=== PATIENT | male | born 1955 | race African-American/Black ===

== ENCOUNTER 2019-01-18 10:51 | Emergency (ER) | payer BC ==
[2019-01-18 10:59] VITALS: BP 135/67; PULSE 89; TEMP 98.6; BMI 35.7
[2019-01-18] MEDS ORDERED: DEXAMETHASONE LIQUID 0.5 MG/5 ML 240 ML BULK BOTTLE PO ONE (11:28)
[2019-01-18] MEDS ORDERED: DEXAMETHASONE SOD PHOSPHATE 10 MG/1 ML VIAL ONE (11:33)
--- NOTE | 2019-01-18 11:33 | PDOC ---
History of Present Illness - General Chief Complaint: Rash Stated Complaint: ALLERGIC REACTION Time Seen by Provider: 01/18/19 11:18 - History of Present Illness Initial Comments: 01/18/19 11:28 63-year-old male with a past medical history of asthma and hypertension presents for evaluation of rash without systemic symptoms times one day. Past History - Past Medical History Allergies/Adverse Reactions: Allergies Allergy/AdvReac Type Severity Reaction Status Date / Time almond Allergy Verified 11/11/18 10:32 oyster extract Allergy Verified 01/18/19 10:59 HAY FEVER Allergy Uncoded 11/11/18 10:31 Home Medications: Ambulatory Orders Amlodipine Besylate/Benazepril [Lotrel 10-20 mg Capsule] 1 cap PO HS 01/18/19 Budesonide/Formeterol Fumarate [SYMBICORT 160/4.5mcg -] 1 inh PO DAILY 01/18/19 Diphenhydramine [Benadryl -] 50 mg PO ASDIR 01/18/19 Montelukast Sodium [Singulair] 10 mg PO HS 01/18/19 COPD: No - Immunization History Immunization Up to Date: No - Suicide/Smoking/Psychosocial Hx Smoking History: Never smoked Have you smoked in the past 12 months: No Information on smoking cessation initiated: No Hx Alcohol Use: No Drug/Substance Use Hx: No Review of Systems - Review of Systems Constitutional: No: Fever Integumentary: Yes: Pruritus, Rash *Physical Exam - Vital Signs Last Vital Signs Temp Pulse Resp BP Pulse Ox 98.6 F 89 18 135/67 100 01/18/19 10:56 01/18/19 10:56 01/18/19 10:56 01/18/19 10:56 01/18/19 10:56 - Physical Exam Comments: 01/18/19 11:29 HEAD: NC/AT EYES: Conjuntiva clear Ears: Canals and TM's normal NOSE: No d/c THROAT: Moist mucous membrances, oral pharanx clear, uvula midline NECK: Supple without adenopathy CARDIAC: S1 S2 LUNGS: CTA Full and Equal breath sounds ABDOMEN: Soft NT ND MS: Full ROM in all joints without edema NEUROLOGIC: No gross sensory or motor deficits, NVID SKIN: Normal color and temperature no lesions raised wheals about the back neck upper extremities and anterior aspects of the thighs. Medical Decision Making - Medical Decision Making 01/18/19 11:29 This is an ALLERGIC rash, patient states he drank a water with grapefruit flavor which may be the cause of his rash. He's taken Benadryl with minimal relief I will treat him with Decadron have him continue with PO home Benadryl and follow-up with his PCP *DC/Admit/Observation/Transfer Diagnosis at time of Disposition: Rash due to allergy - Discharge Dispostion Disposition: HOME Condition at time of disposition: Stable Decision to Admit order: No - Referrals Referrals: Ernestine Angela MD [Staff Physician] - - Patient Instructions Printed Discharge Instructions: Food Allergy, Hives, DI for Hives Additional Instructions: You're given a dose of a long-acting steroid in the emergency room today. He may return to the emergency room for any reason such as worsening symptoms or symptoms that go unresolved. Follow-up with your primary care physician in 1-2 days without fail. You can continue with home Benadryl as directed. - Post Discharge Activity
== END 2019-01-18 11:40 | disposition home or self-care (01) ==
LOC: JERFT 10:51
DX: L50.0 Allergic urticaria (principal); T78.40XA Allergy, unspecified, initial encounter
CPT/HCPCS: 99282-25

== ENCOUNTER 2019-06-14 17:48 | Inpatient (IN) | payer BC ==
--- NOTE | 2019-06-14 17:59 | PDOC ---
History of Present Illness - General Stated Complaint: CHEST PAIN Past History - Past Medical History Allergies/Adverse Reactions: Allergies Allergy/AdvReac Type Severity Reaction Status Date / Time almond Allergy Verified 11/11/18 10:32 oyster extract Allergy Verified 01/18/19 10:59 HAY FEVER Allergy Uncoded 11/11/18 10:31 Home Medications: Ambulatory Orders Amlodipine Besylate/Benazepril [Lotrel 10-20 mg Capsule] 1 cap PO HS 01/18/19 Budesonide/Formeterol Fumarate [SYMBICORT 160/4.5mcg -] 1 inh PO DAILY 01/18/19 Diphenhydramine [Benadryl -] 50 mg PO ASDIR 01/18/19 Montelukast Sodium [Singulair] 10 mg PO HS 01/18/19 COPD: No - Immunization History Immunization Up to Date: No - Psycho Social/Smoking Cessation Hx Smoking History: Never smoked Have you smoked in the past 12 months: No Hx Alcohol Use: No Drug/Substance Use Hx: No
--- NOTE | 2019-06-14 18:11 | PDOC ---
Rapid Medical Evaluation Chief Complaint: Pain Time Seen by Provider: 06/14/19 18:07 Medical Evaluation: Allergies Allergy/AdvReac Type Severity Reaction Status Date / Time almond Allergy Verified 11/11/18 10:32 oyster extract Allergy Verified 01/18/19 10:59 HAY FEVER Allergy Uncoded 11/11/18 10:31 06/14/19 18:07 I have performed a brief in-person evaluation of this patient. The patient presents with a chief complaint of:chest pain with cough, thinks is independant. No relief with nexium Pertinent physical exam findings: + left arm numbness ~ 1 hour ago, resolved. Chest pain / pressure " I feel like someone is standing on chest" I have ordered the following: EkG done in triage. The patient will proceed to the ED for further evaluation. Discharge Disposition - Diagnosis Chest pain - Referrals - Patient Instructions - Post Discharge Activity
[2019-06-14 18:33] LABS: BASO % 0.5 % (0-2.0); EOS % 3.4 % (0-4.5); HEMATOCRIT 40.8 % (35.4-49); HEMOGLOBIN 13.3 GM/dL (11.7-16.9); MCH 28.3 pg (25.7-33.7); MCHC 32.6 g/dl (32.0-35.9); MEAN CELL VOLUME 86.8 fl (80-96); MONO % 12.6 % (3.8-10.2); NEUT % 76.5 % (42.8-82.8); PLATELET COUNT 235 K/MM3 (134-434); RBC 4.71 M/mm3 (4.00-5.60); RDW 14.5 % (11.9-15.9)
[2019-06-14 18:40] LABS: EPI CELLS 0.3 /HPF (0-5/HPF); HYALINE CASTS 2 /lpf (0-8); URINE APPEARANCE CLEAR; URINE BACTERIA 0.5 /hpf (NEGATIVE); URINE BILIRUBIN NEGATIVE (NEGATIVE); URINE COLOR YELLOW; URINE GLUCOSE (UA) NEGATIVE (NEGATIVE); URINE KETONE TRACE (NEGATIVE); URINE LEUK ESTERASE NEGATIVE (NEGATIVE); URINE NITRITE NEGATIVE (NEGATIVE); URINE PROTEIN NEGATIVE (NEGATIVE); URINE RBC 1 /hpf (0-4); URINE UROBILINOGEN 0.2 mg/dL (0.2-1.0); URINE WBC 1 /hpf (0-5)
[2019-06-14 18:46] LABS: INR 1.21 (0.83-1.09); PROTHROMBIN TIME (PATIENT) 14.3 SEC (9.7-13.0)
[2019-06-14 19:04] LABS: ALBUMIN 3.7 g/dl (3.4-5.0); ALK PHOS 75 U/L (45-117); ANION GAP 6 MMOL/L (8-16); BILIRUBIN,TOTAL 0.5 mg/dL (0.2-1); BLOOD UREA NITROGEN 15.5 mg/dL (7-18); CALCIUM 9.1 mg/dL (8.5-10.1); CHLORIDE 104 mmol/L (98-107); CO2 28 mmol/L (21-32); GLUCOSE,RANDOM 87 mg/dL (74-106); SGOT/AST 19 U/L (15-37); SGPT/ALT 16 U/L (13-61); SODIUM 138 mmol/L (136-145); TOT PROT 7.1 g/dl (6.4-8.2)
[2019-06-14] MEDS ORDERED: SODIUM CHLORIDE IV ONE (20:03)
[2019-06-14 21:26] LABS: VENOUS PC02 38.6 mmHg (38-52); VENOUS PH 7.43 (7.31-7.41); VENOUS PO2 50.6 mmHg (28-48)
[2019-06-14] MEDS ORDERED: ACETAMINOPHEN 500 MG TABLET (FP) PO ONE (21:50)
--- NOTE | 2019-06-14 22:16 | PDOC ---
Documentation entered by Brandie Bhat SCRIBE, acting as scribe for Violet Jimenez MD. Violet Jimenez MD: This documentation has been prepared by the scribe, Brandie Bhat SCRIBE, under my direction and personally reviewed by me in its entirety. I confirm that the documentation accurately reflects all work, treatment, procedures, and medical decision making performed by me. Attending Attestation - Resident Resident Name: [email or web address] - ED Attending Attestation I have performed the following: I have examined & evaluated the patient, The case was reviewed & discussed with the resident, I agree w/resident's findings & plan, Exceptions are as noted - HPI HPI: 06/14/19 20:57 The patient is a 64 year old male with significant past medical history of HTN, COPD, asthma, and prostate cancer who presents to the ED with 2 days of chest pain and 1 week of nonproductive cough with increased burping. Pt describes the chest pain as L sided, substernal, constant, non radiating, feels like a baby is sitting on his chest, associated left upper extremity numbness and dyspnea on exertion, worsening with movements and certain positions. Pt reports taking nexium with no relief of symptoms. Pt notes he had a stress test and echo (JanuaryFebruary 2019) which he reports was normal. As per patient, he states traveling on a 4-5+ hour trip at the beginning of this month (05/2019). The patient denies, headache and dizziness.Denies fever, chills, nausea, vomiting, diarrhea and constipation. Denies dysuria, frequency, urgency and hematuria. Allergies: [place], oyster extract, hay fever. Social History: denies tobacco or illicit drug use. PCP: Dr. Damir Abraham - Physicial Exam PE: 06/14/19 20:57 GENERAL: +Cough. Awake, alert, and fully oriented, in no acute distress HEAD: No signs of trauma ENT: Auricles normal inspection, hearing grossly normal, nares patent, oropharynx clear without exudates. Moist mucosa NECK: Normal ROM, supple, no lymphadenopathy, JVD, or masses LUNGS: +Right base fine crackles. No wheezes. HEART: Regular rate and rhythm, normal S1 and S2, no murmurs, rubs or gallops ABDOMEN: Soft, nontender, normoactive bowel sounds. No guarding, no rebound. No masses EXTREMITIES: Normal range of motion, no edema. No clubbing or cyanosis. No cords, erythema, or tenderness NEUROLOGICAL: Cranial nerves II through XII grossly intact. Normal speech SKIN: Warm, Dry, normal turgor, no rashes or lesions noted. - Medical Decision Making 06/14/19 23:04 64-year-old male presents with several days of increasing shortness of breath mild cough -has a past medical history of hypertension ,COPD ,prostate cancer status post radiation treatment Reviewing his vital signs is a low-grade fever of 100.7 He is not hypoxic and saturating at 97% on room air He did take a bus trip down to [place] and back on election day Troponin 0 0.02 CBC is unremarkable EKG is normal sinus rhythm at 93 bpm incomplete right bundle branch block Chemistries are essentially normal 06/14/19 23:09 CTA of the chest showed acute bilateral upper and lower lobe central pulmonary embolism There is also a small right posterior bibasilar opacity seen which may represent infiltrate versus a focal edema associated with the pulmonary infarction Trace right pleural effusion Heparin was started with a bolus of 80 units per KG and therefore he was given almost 8000 units of heparin followed by an infusion of 18 units/kg/h plan dmit to teelemetry
[2019-06-14] MEDS ORDERED: ACETAMINOPHEN 325 MG TABLET (FP) ONE (22:20)
--- NOTE | 2019-06-14 22:20 | PDOC ---
History of Present Illness - General Chief Complaint: Chest Pain Stated Complaint: CHEST PAIN Time Seen by Provider: 06/14/19 18:07 Past History - Past Medical History Allergies/Adverse Reactions: Allergies Allergy/AdvReac Type Severity Reaction Status Date / Time almond Allergy Verified 06/14/19 18:10 [place] nut Allergy Verified 06/15/19 05:54 oyster extract Allergy Verified 06/14/19 18:10 shellfish derived Allergy Verified 06/15/19 05:54 HAY FEVER Allergy Uncoded 06/14/19 18:10 Home Medications: Ambulatory Orders Amlodipine Besylate/Benazepril [Lotrel 10-20 mg Capsule] 1 cap PO HS 01/18/19 Budesonide/Formeterol Fumarate [SYMBICORT 160/4.5mcg -] 1 inh PO DAILY 01/18/19 Diphenhydramine [Benadryl -] 50 mg PO ASDIR 01/18/19 Montelukast Sodium [Singulair] 10 mg PO HS 01/18/19 COPD: No - Immunization History Immunization Up to Date: No - Psycho Social/Smoking Cessation Hx Smoking History: Never smoked Have you smoked in the past 12 months: No Hx Alcohol Use: No Drug/Substance Use Hx: No *Physical Exam - Vital Signs Last Vital Signs Temp Pulse Resp BP Pulse Ox 100.7 F H 97 H 16 149/86 97 06/14/19 18:06 06/14/19 18:06 06/14/19 18:06 06/14/19 18:06 06/14/19 18:06 ED Treatment Course - LABORATORY CBC & Chemistry Diagram: 06/17/19 06:55 06/17/19 06:55 - ADDITIONAL ORDERS Additional order review: Laboratory Results 06/14/19 06/14/19 06/14/19 21:00 18:20 18:20 PT with INR 14.30 H INR 1.21 H VBG pH 7.43 H POC VBG pCO2 38.6 POC VBG pO2 50.6 H VBG HCO3 24.9 VBG O2 Sat ([place]) 84.8 H VBG Base Excess 1.1 Sodium Potassium Chloride Carbon Dioxide Anion Gap BUN Creatinine Est GFR (CKD-EPI)AfAm Est GFR (CKD-EPI)NonAf Random Glucose Calcium Total Bilirubin AST ALT Alkaline Phosphatase Creatine Kinase Creatine Kinase Index CK-MB (CK-2) Troponin I Total Protein Albumin Urine Color Yellow Urine Appearance Clear Urine pH 5.0 Ur Specific [place] 1.020 Urine Protein Negative Urine Glucose (UA) Negative Urine Ketones Trace H Urine Blood Trace Urine Nitrite Negative Urine Bilirubin Negative Urine Urobilinogen 0.2 Ur Leukocyte Esterase Negative Urine WBC (Auto) 1 Urine RBC (Auto) 1 Urine Casts (Auto) 2 U Epithel Cells (Auto) 0.3 Urine Bacteria (Auto) 0.5 06/14/19 18:20 PT with INR INR VBG pH POC VBG pCO2 POC VBG pO2 VBG HCO3 VBG O2 Sat ([place]) VBG Base Excess Sodium 138 Potassium 4.0 Chloride 104 Carbon Dioxide 28 Anion Gap 6 L BUN 15.5 Creatinine 1.0 Est GFR (CKD-EPI)AfAm 91.78 Est GFR (CKD-EPI)NonAf 79.19 Random Glucose 87 Calcium 9.1 Total Bilirubin 0.5 AST 19 ALT 16 Alkaline Phosphatase 75 Creatine Kinase 200 Creatine Kinase Index No Result Required. CK-MB (CK-2) < 1.0 Troponin I < 0.02 Total Protein 7.1 Albumin 3.7 Urine Color Urine Appearance Urine pH Ur Specific [place] Urine Protein Urine Glucose (UA) Urine Ketones Urine Blood Urine Nitrite Urine Bilirubin Urine Urobilinogen Ur Leukocyte Esterase Urine WBC (Auto) Urine RBC (Auto) Urine Casts (Auto) U Epithel Cells (Auto) Urine Bacteria (Auto) 06/14/19 18:20 RBC 4.71 MCV 86.8 MCHC 32.6 RDW 14.5 MPV 8.0 Neutrophils % 76.5 Lymphocytes % 7.0 L Monocytes % 12.6 H Eosinophils % 3.4 Basophils % 0.5 - RADIOLOGY Radiology Studies Ordered: Category Date Time Status CHEST CTA [CT] Stat CT Scan 06/14/19 20:04 Ordered Medical Decision Making - Medical Decision Making 06/14/19 21:51 HPI: 64yo M hx HTN, asthma/COPD, prostate CA (s/p surgery in December and radiation in March), season allergies, and 5hr bus trip 3 weeks ago presents from home c/ o 1wk of cough and increased gas and LO, 2 days of constant substernal chest pressure, and a 5-10 minute episode of LUE numbness at rest today. Past week noticed nonproductive cough, significant increase in gas/burping despite nexium use, and new onset LO up hill or stairs, worsening, no hx LO, no associated sx , no improvement with inhaler. Then pt noticed 2 days of constant gradual onset substernal chest pressure intermittently radiating to back, no hx similar sx, no provoking/palliating factors. Today had 5-10min episode of LUE numbness/ tingling while sitting at desk, at rest, no hx similar sx. Denies smoking, hormone use, FHx early CVD, hx DVT/PE, hemoptysis, leg swelling, calf tenderness , sick contacts, international travel, F/C, N/V, lightheadedness, headache, diaphoresis, abdominal pain, D/C, blood in stool, urinary sx, vision changes, focal weakness. PCP/cardio - [place] ROS: Constitutional: Negative for chills, fever, fatigue, diaphoresis. HENT: Negative for sore throat, rhinorrhea, congestion. Eyes: Negative for visual disturbance. Respiratory: Positive for shortness of breath and cough. Negative for wheezing. Cardiovascular: Positive for chest pain. Negative for palpitations, and leg swelling. Gastrointestinal: Positive for increasing burping/gas. Negative for abdominal pain, blood in stool, constipation, diarrhea, nausea, and vomiting. Genitourinary: Negative for dysuria, flank pain, and hematuria. Musculoskeletal: Negative for myalgias, back pain, and neck pain. Skin: Negative for rash. Neurological: Positive for LUE numbness/tingling. Negative for light-headedness , dizziness, vertigo, syncope, weakness, and headaches. Psychiatric/Behavioral: Negative for behavioral problems and confusion. PE: Gen: Alert, NAD, comfortable-appearing. HEENT: PERRL, EOMI, MMM, NCAT. No conjunctival pallor. Sclera are non-icteric. Oropharynx is clear. CV: Regular rate and rhythm. No murmurs, rubs, or gallops. No chest tenderness. PULM: No resp distress. CTAB, no wheezes, rales, or rhonchi. ABD: soft, NT/ND, no rebound tenderness or guarding, no CVA tenderness. BACK: No TTP of c/t/l-spine. No step-offs or deformities. MSK: No bony deformities. 2+ pulses in all extremities. NEURO: AAOx3. PERRL. No gross CN deficits. Strength and sensation grossly intact throughout. EXTREMITIES: No cyanosis. No clubbing. No edema. No calf tenderness. PSYCH: Normal mood and thought pattern. SKIN: Warm and dry. Normal capillary refill. No rashes. No jaundice. MDM: 64yo M hx HTN, asthma/COPD, prostate CA (s/p surgery in December and radiation in March), season allergies, and 5hr bus trip 3 weeks ago presents from home with 1wk of cough and increased gas and LO, 2 days of constant substernal chest pressure, and a 5-10 minute episode of LUE numbness at rest today. Tachycardic to 97, 100.7F, O2 sat 97% on RA, other VSS, lungs CTAB, no leg swelling/calf tenderness. Ddx: PE ([facility] 4, high suspicion), ACS/PA (HEART 4), COPD exacerbation, sepsis, PNA, UTI, metabolic derangement, anemia -EKG -CBC,CMP,Coags,Cardiac profile w/tropx2, VBG,Lact,BCx,UA/UC -CTPE -Tylenol -IVF -Dispo: likely admit pending w/u 06/14/19 23:03 EKG reviewed: NSR, IRBBB, 93bpm, normal axis, no e/o acute ischemia, no significant change compared to 04/14/18 Labs reviewed. Trop neg. CTPE showed bilateral PE. No hx head bleed, GI bleed, head tumor. Discussed with pt. Will start heparin per PE protocol. CTPE: acute bilateral upper and lower lobe central pulmonary embolism, there is also a small right posterior bibasilar opacity seen which may represent infiltrate versus a focal edema associated with the pulmonary infarction, Trace right pleural effusion 06/14/19 23:51 Signed out to admitting team. Added duplex BLEs. Discharge - Discharge Information Problems reviewed: Yes Clinical Impression/Diagnosis: Chest pain, Pulmonary embolism, bilateral Condition: Stable - Admission Yes - Follow up/Referral - Patient Discharge Instructions - Post Discharge Activity
[2019-06-14] MEDS ORDERED: HEPARIN NA (PORCINE) 5,000 UNITS/ML 1ML VIAL IVPUSH ONE (22:54)
[2019-06-14 22:57] LABS: ACTIVATED PTT 36.1 SECONDS (25.2-36.5)
[2019-06-14] MEDS ORDERED: HEPARIN NA (PORCINE) 5,000 UNITS/ML 1ML VIAL ONE (23:07)
[2019-06-14] MEDS ORDERED: HEPARIN INFUSION - 25,000 UNITS/500 ML INFUS.BAG IVPB ONE (23:07)
[2019-06-14] MEDS: HEPARIN - 25,000 UNIT in SODIUM CHLORIDE 495 ML IV SCH (23:22)
--- NOTE | 2019-06-14 23:47 | HP ---
Admitting History and Physical - Primary Care Physician PCP: Damir Abraham - Admission Chief Complaint: SOB, Chest Pressure History of Present Illness: This is a 64 y/o man with a PMHx of HTN, COPD, Asthma, and Prostate Ca (s/p sx, completed RT, 03/2019). Who presents to the ED with chest pain x2 days, and nonproductive cough x 1 week, with increased belching. Patient describes the chest pain as L- sided, substernal, constant and non radiating, states feels like a baby is sitting on my chest, Patient reports having left upper extremity numbness, dyspnea on exertion, worsening with movements and certain positions. Patient reports taking Nexium with no relief of symptoms. Patient reports having a Stress Test and an Echo (February 2019), which he reports was normal. Patient reports recent travel a 4-5+hour Bus trip to [place], [place] at the beginning of this month. Patient denies fever, chills, dizziness, headache, palpitations, N/V/D, constipation, melena, hematochezia, dysuria, frequency, urgency,hematuria. ED course was noted for: (1) CTA- bilateral upper/lower PE. small right posterior bibasilar opacity. ? infiltrate vs focal edema with pulmonary infarction. 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) History of Recent Travel: Yes (Bus Trip +4/5 hrs- [facility]) Home Medications - Allergies Allergies/Adverse Reactions: Allergies Allergy/AdvReac Type Severity Reaction Status Date / Time almond Allergy Verified 06/14/19 18:10 [place] nut Allergy Verified 06/15/19 05:54 oyster extract Allergy Verified 06/14/19 18:10 shellfish derived Allergy Verified 06/15/19 05:54 [place]AY FEVER Allergy Uncoded 06/14/19 18:10 - Home Medications Home Medications: Ambulatory Orders Amlodipine Besylate/Benazepril [Lotrel 10-20 mg Capsule] 1 cap PO HS 01/18/19 Budesonide/Formeterol Fumarate [SYMBICORT 160/4.5mcg -] 1 inh PO DAILY 01/18/19 Diphenhydramine [Benadryl -] 50 mg PO ASDIR 01/18/19 Montelukast Sodium [Singulair] 10 mg PO HS 01/18/19 Family Medical History Family Hx Coronary Artery Disease: Brother (Valve replacement) Family Hx Nuerologic Problems: Father (CVA) Other Family History: Mother- Varicose Veins Review of Systems - Review of Systems Constitutional: reports: Malaise Eyes: reports: No Symptoms HENT: reports: No Symptoms Neck: reports: No Symptoms Cardiovascular: reports: Chest Pain, Shortness of Breath Respiratory: reports: Cough, Orthopnea, SOB, SOB on Exertion Gastrointestinal: reports: Indigestion Genitourinary: reports: No Symptoms Breasts: reports: No Symptoms Reported Musculoskeletal: reports: No Symptoms Integumentary: reports: No Symptoms Neurological: reports: Weakness Endocrine: reports: No Symptoms Hematology/Lymphatic: reports: No Symptoms Psychiatric: reports: No Symptoms Pain Intensity: 4 Physical Examination Vital Signs: Vital Signs Temperature 100.7 F H 06/14/19 18:06 Pulse Rate 88 06/14/19 22:45 Respiratory Rate 20 06/14/19 22:45 Blood Pressure 147/80 06/14/19 22:45 O2 Sat by Pulse Oximetry (%) 95 06/14/19 22:45 Constitutional: Yes: Mild Distress, Obese Eyes: Yes: WNL, Conjunctiva Clear, EOM Intact, PERRL HENT: Yes: WNL, Atraumatic, Normocephalic Neck: Yes: WNL, Supple, Trachea Midline Cardiovascular: Yes: Regular Rate and Rhythm, S1, S2 Respiratory: Yes: Cough, Diminished, SOB on Exertion Gastrointestinal: Yes: WNL, Normal Bowel Sounds, Soft, Abdomen, Obese Renal/: Yes: WNL Breast(s): Yes: WNL Musculoskeletal: Yes: WNL Extremities: Yes: WNL Edema: No Peripheral Pulses WNL: Yes Neurological: Yes: WNL, Alert, Oriented, Cran Nerves II-XII Intact ...Motor Strength: WNL Psychiatric: Yes: WNL, Alert, Oriented Labs: CBC, BMP 06/14/19 18:20 06/14/19 18:20 Laboratory Results - last 24 hr 06/14/19 06/14/19 06/14/19 18:20 18:20 18:20 WBC 8.0 RBC 4.71 Hgb 13.3 Hct 40.8 MCV 86.8 MCH 28.3 MCHC 32.6 RDW 14.5 Plt Count 235 MPV 8.0 Absolute Neuts (auto) 6.2 Neutrophils % 76.5 Lymphocytes % 7.0 L Monocytes % 12.6 H Eosinophils % 3.4 Basophils % 0.5 Nucleated RBC % 0 PT with INR 14.30 H INR 1.21 H PTT (Actin FS) 36.1 Anticoagulation Therapy Puncture Site ABG pH ABG pCO2 at Pt Temp ABG pO2 at Pt Temp ABG HCO3 ABG O2 Sat (Measured) ABG O2 Content ABG Base Excess Ramon Test VBG pH POC VBG pCO2 POC VBG pO2 VBG HCO3 VBG O2 Sat (Usman) VBG Base Excess O2 Delivery Device Oxygen Flow Rate Vent Mode Vent Rate Mechanical Rate Pressure Support Vent Sodium 138 Potassium 4.0 Chloride 104 Carbon Dioxide 28 Anion Gap 6 L BUN 15.5 Creatinine 1.0 Est GFR (CKD-EPI)AfAm 91.78 Est GFR (CKD-EPI)NonAf 79.19 Random Glucose 87 Lactic Acid Calcium 9.1 Total Bilirubin 0.5 AST 19 ALT 16 Alkaline Phosphatase 75 Creatine Kinase 200 Creatine Kinase Index No Result Required. CK-MB (CK-2) < 1.0 Troponin I < 0.02 Total Protein 7.1 Albumin 3.7 Urine Color Urine Appearance Urine pH Ur Specific [place] Urine Protein Urine Glucose (UA) Urine Ketones Urine Blood Urine Nitrite Urine Bilirubin Urine Urobilinogen Ur Leukocyte Esterase Urine WBC (Auto) Urine RBC (Auto) Urine Casts (Auto) U Epithel Cells (Auto) Urine Bacteria (Auto) 06/14/19 06/14/19 06/14/19 18:20 21:00 21:00 WBC RBC Hgb Hct MCV MCH MCHC RDW Plt Count MPV Absolute Neuts (auto) Neutrophils % Lymphocytes % Monocytes % Eosinophils % Basophils % Nucleated RBC % PT with INR INR PTT (Actin FS) Anticoagulation Therapy Puncture Site ABG pH ABG pCO2 at Pt Temp ABG pO2 at Pt Temp ABG HCO3 ABG O2 Sat (Measured) ABG O2 Content ABG Base Excess Ramon Test VBG pH 7.43 H POC VBG pCO2 38.6 POC VBG pO2 50.6 H VBG HCO3 24.9 VBG O2 Sat (Usman) 84.8 H VBG Base Excess 1.1 O2 Delivery Device Oxygen Flow Rate Vent Mode Vent Rate Mechanical Rate Pressure Support Vent Sodium Potassium Chloride Carbon Dioxide Anion Gap BUN Creatinine Est GFR (CKD-EPI)AfAm Est GFR (CKD-EPI)NonAf Random Glucose Lactic Acid 1.0 Calcium Total Bilirubin AST ALT Alkaline Phosphatase Creatine Kinase Creatine Kinase Index CK-MB (CK-2) Troponin I Total Protein Albumin Urine Color Yellow Urine Appearance Clear Urine pH 5.0 Ur Specific [place] 1.020 Urine Protein Negative Urine Glucose (UA) Negative Urine Ketones Trace H Urine Blood Trace Urine Nitrite Negative Urine Bilirubin Negative Urine Urobilinogen 0.2 Ur Leukocyte Esterase Negative Urine WBC (Auto) 1 Urine RBC (Auto) 1 Urine Casts (Auto) 2 U Epithel Cells (Auto) 0.3 Urine Bacteria (Auto) 0.5 06/14/19 06/14/19 22:42 23:45 WBC RBC Hgb Hct MCV MCH MCHC RDW Plt Count MPV Absolute Neuts (auto) Neutrophils % Lymphocytes % Monocytes % Eosinophils % Basophils % Nucleated RBC % PT with INR INR PTT (Actin FS) Anticoagulation Therapy No Result Required. Puncture Site Right radial ABG pH 7.40 ABG pCO2 at Pt Temp 35.3 ABG pO2 at Pt Temp 78.5 L ABG HCO3 21.4 L ABG O2 Sat (Measured) 95.4 ABG O2 Content 15.7 ABG Base Excess -2.3 L Ramon Test Positive VBG pH POC VBG pCO2 POC VBG pO2 VBG HCO3 VBG O2 Sat (Usman) VBG Base Excess O2 Delivery Device R/air Oxygen Flow Rate 21% Vent Mode No Result Required. Vent Rate No Result Required. Mechanical Rate No Result Required. Pressure Support Vent No Result Required. Sodium Potassium Chloride Carbon Dioxide Anion Gap BUN Creatinine Est GFR (CKD-EPI)AfAm Est GFR (CKD-EPI)NonAf Random Glucose Lactic Acid Calcium Total Bilirubin AST ALT Alkaline Phosphatase Creatine Kinase Creatine Kinase Index CK-MB (CK-2) Troponin I < 0.02 Total Protein Albumin Urine Color Urine Appearance Urine pH Ur Specific [place] Urine Protein Urine Glucose (UA) Urine Ketones Urine Blood Urine Nitrite Urine Bilirubin Urine Urobilinogen Ur Leukocyte Esterase Urine WBC (Auto) Urine RBC (Auto) Urine Casts (Auto) U Epithel Cells (Auto) Urine Bacteria (Auto) Intake & Output 06/12/19 06/13/19 06/14/19 06/15/19 23:59 23:59 23:59 23:59 Weight 99.337 kg Current Medications Generic Name Dose Route Start Last Admin Trade Name Freq PRN Reason Stop Dose Admin Budesonide/Formoterol Fumarate 1 puff 06/15/19 10:00 Symbicort 160/4.5mcg - IH DAILY GUANAKO Heparin Sodium (Porcine) 25, 500 mls @ 36 mls/hr 06/14/19 23:00 06/14/19 23: 22 000 unit/ Sodium Chloride IV 1,800 unit/hr TITR GUANAKO 36 mls/hr Administration Protocol 1,800 UNIT/HR Montelukast Sodium 10 mg 06/15/19 22:00 Singulair - PO HS GUANAKO Non-Formulary Medication 1 cap 06/15/19 22:00 Amlodipine Besylate/Benazepril [Lotrel 10-20 Mg Capsule] PO HS GUANAKO Imaging - Results Cat Scan: Report Reviewed, Image Reviewed Ultrasound: Image Reviewed EKG: Image Reviewed Problem List - Problems (1) Pulmonary embolism, bilateral Code(s): I26.99 - OTHER PULMONARY EMBOLISM WITHOUT ACUTE COR PULMONALE (2) Chest pain Code(s): R07.9 - CHEST PAIN, UNSPECIFIED (3) COPD (chronic obstructive pulmonary disease) Code(s): J44.9 - CHRONIC OBSTRUCTIVE PULMONARY DISEASE, UNSPECIFIED (4) Asthma Code(s): J45.909 - UNSPECIFIED ASTHMA, UNCOMPLICATED (5) HTN (hypertension) Code(s): I10 - ESSENTIAL (PRIMARY) HYPERTENSION (6) History of prostate cancer Code(s): Z85.46 - PERSONAL HISTORY OF MALIGNANT NEOPLASM OF PROSTATE Assessment/Plan This is a 64 y/o man with a PMHx of HTN, COPD, Asthma, Prostate Cancer (s/p sx, RT). Admitted to Telemetry Acute Pulmonary Embolism, Chest Pain r/o ACS for further evaluation of their emergent condition. Problems: 1. Acute Pulmonary Embolism 2. Chest Pain r/o ACS 3. Hypertension 4. COPD 5. Asthma 6. Prostate Ca Plan: Admit to Telemetry Continue cardiac monitoring PERC Rule 1 Wells Score 4.5 CTA- Acute PE Started on Heparin Drip with bolus given in ED Series aPTTs Monitor CBC, BMP Appreciate Pulmonology consult Will order duplex of b/l LE r/o DVT EKG- reviewed Serial Enzymes neg x2, will trend Appreciate Cardiology consult O2 Continue home meds FEN- PO fluids as tolerated, replete lytes prn, Low Na Diet DVT ppx- OOB, Heparin Drip, Hold SCDs until duplex completed and read Code Status: Full Code Dispo: Requires Inpatient Care Visit type - Emergency Visit Emergency Visit: Yes ED Registration Date: 06/14/19 Care time: The patient presented to the Emergency Department on the above date and was hospitalized for further evaluation of their emergent condition. - New Patient This patient is new to me today: Yes Date on this admission: 06/14/19 - Critical Care Critical Care patient: No
[2019-06-15 00:22] LABS: ARTERIAL BLD GAS O2 SATURATION 95.4 % (95-98); ARTERIAL BLOOD GAS BASE EXCESS -2.3 meq/l (-2-2); ARTERIAL BLOOD GAS PCO2 35.3 mmHg (35-45); ARTERIAL BLOOD GAS PO2 78.5 mmHg (80-100)
[2019-06-15 00:35] LABS: ALLENS TEST POSITIVE
[2019-06-15] MEDS ORDERED: HEPARIN NA (PORCINE) 5,000 UNITS/ML 1ML VIAL IVPUSH PRN ×2 (06:18)
[2019-06-15 07:26] LABS: BASO % 0.5 % (0-2.0); EOS % 4.2 % (0-4.5); HEMATOCRIT 37.8 % (35.4-49); HEMOGLOBIN 12.6 GM/dL (11.7-16.9); LYMPH % 6.8 % (8-40); MCH 28.9 pg (25.7-33.7); MCHC 33.4 g/dl (32.0-35.9); MEAN CELL VOLUME 86.6 fl (80-96); MEAN PLT VOLUME 8.5 fl (7.5-11.1); MONO % 13.8 % (3.8-10.2); NEUT % 74.7 % (42.8-82.8); PLATELET COUNT 212 K/MM3 (134-434); RBC 4.36 M/mm3 (4.00-5.60); RDW 14.2 % (11.9-15.9); WHITE BLOOD COUNT 6.2 K/mm3 (4.0-10.0)
[2019-06-15 08:28] LABS: BLOOD UREA NITROGEN 11.5 mg/dL (7-18); CALCIUM 8.7 mg/dL (8.5-10.1); CREATININE 0.9 mg/dL (0.55-1.3); MAGNESIUM 2.2 mg/dL (1.8-2.4); PHOSPHOROUS 3.2 mg/dL (2.5-4.9); POTASSIUM 3.8 mmol/L (3.5-5.1)
--- NOTE | 2019-06-15 10:36 | PN ---
Progress Note (short form) - Note Progress Note: Events noted traveled by train and bus to [facility] recently and returned about 2 weeks ago Has been assymptomatic prior to travel-- but after he arrived in [place] , started experiencing SOB on walking on level ground - unable to make 2 blocks without stopping due to SOB currently no chest pain Found to have left leg DVT and B/l PE now on heparin gtt h/o prostate CA-- diagnosed this August Vital Signs - 24 hr 06/14/19 06/14/19 06/14/19 18:06 22:45 23:00 Temperature 100.7 F H Pulse Rate 97 H Pulse Rate [ 88 Left Radial] Respiratory 16 20 Rate Blood Pressure 149/86 Blood Pressure 147/80 [Right Arm] O2 Sat by Pulse 97 95 95 Oximetry (%) 06/15/19 06/15/19 06/15/19 05:15 06:46 09:34 Temperature 97 F L 97.6 F Pulse Rate Pulse Rate [ 69 78 73 Left Radial] Respiratory 20 16 18 Rate Blood Pressure Blood Pressure 141/79 127/79 159/90 [Right Arm] O2 Sat by Pulse 95 98 96 Oximetry (%) Current Medications Generic Name Dose Route Start Last Admin Trade Name Freq PRN Reason Stop Dose Admin Amlodipine Besylate 10 mg 06/15/19 22:00 Norvasc - PO HS GUANAKO Budesonide/Formoterol Fumarate 2 puff 06/15/19 10:00 Symbicort 160/4.5mcg - IH BID GUANAKO Heparin Sodium (Porcine) 5,000 unit 06/15/19 06:18 Heparin - IVPUSH PRN PRN Heparin Heparin Sodium (Porcine) 1,000 unit 06/15/19 06:18 Heparin - IVPUSH PRN PRN Heparin Heparin Sodium (Porcine) 25, 500 mls @ 36 mls/hr 06/14/19 23:00 06/14/19 23: 22 000 unit/ Sodium Chloride IV 1,800 unit/hr TITR GUANAKO 36 mls/hr Administration Protocol 1,800 UNIT/HR Lisinopril 20 mg 06/15/19 22:00 Prinivil PO HS GUANAKO Montelukast Sodium 10 mg 06/15/19 22:00 Singulair - PO HS GUANAKO Laboratory Results - last 24 hr 06/14/19 06/14/19 06/14/19 18:20 18:20 18:20 WBC 8.0 RBC 4.71 Hgb 13.3 Hct 40.8 MCV 86.8 MCH 28.3 MCHC 32.6 RDW 14.5 Plt Count 235 MPV 8.0 Absolute Neuts (auto) 6.2 Neutrophils % 76.5 Lymphocytes % 7.0 L Monocytes % 12.6 H Eosinophils % 3.4 Basophils % 0.5 Nucleated RBC % 0 PT with INR 14.30 H INR 1.21 H PTT (Actin FS) 36.1 Anticoagulation Therapy Puncture Site ABG pH ABG pCO2 at Pt Temp ABG pO2 at Pt Temp ABG HCO3 ABG O2 Sat (Measured) ABG O2 Content ABG Base Excess Ramon Test VBG pH POC VBG pCO2 POC VBG pO2 VBG HCO3 VBG O2 Sat (Usman) VBG Base Excess O2 Delivery Device Oxygen Flow Rate Vent Mode Vent Rate Mechanical Rate Pressure Support Vent Sodium 138 Potassium 4.0 Chloride 104 Carbon Dioxide 28 Anion Gap 6 L BUN 15.5 Creatinine 1.0 Est GFR (CKD-EPI)AfAm 91.78 Est GFR (CKD-EPI)NonAf 79.19 Random Glucose 87 Hemoglobin A1c % Lactic Acid Calcium 9.1 Phosphorus Magnesium Total Bilirubin 0.5 AST 19 ALT 16 Alkaline Phosphatase 75 Creatine Kinase 200 Creatine Kinase Index No Result Required. CK-MB (CK-2) < 1.0 Troponin I < 0.02 Total Protein 7.1 Albumin 3.7 Triglycerides Cholesterol Total LDL Cholesterol HDL Cholesterol TSH Urine Color Urine Appearance Urine pH Ur Specific [place] Urine Protein Urine Glucose (UA) Urine Ketones Urine Blood Urine Nitrite Urine Bilirubin Urine Urobilinogen Ur Leukocyte Esterase Urine WBC (Auto) Urine RBC (Auto) Urine Casts (Auto) U Epithel Cells (Auto) Urine Bacteria (Auto) 06/14/19 06/14/19 06/14/19 18:20 21:00 21:00 WBC RBC Hgb Hct MCV MCH MCHC RDW Plt Count MPV Absolute Neuts (auto) Neutrophils % Lymphocytes % Monocytes % Eosinophils % Basophils % Nucleated RBC % PT with INR INR PTT (Actin FS) Anticoagulation Therapy Puncture Site ABG pH ABG pCO2 at Pt Temp ABG pO2 at Pt Temp ABG HCO3 ABG O2 Sat (Measured) ABG O2 Content ABG Base Excess Ramon Test VBG pH 7.43 H POC VBG pCO2 38.6 POC VBG pO2 50.6 H VBG HCO3 24.9 VBG O2 Sat (Usman) 84.8 H VBG Base Excess 1.1 O2 Delivery Device Oxygen Flow Rate Vent Mode Vent Rate Mechanical Rate Pressure Support Vent Sodium Potassium Chloride Carbon Dioxide Anion Gap BUN Creatinine Est GFR (CKD-EPI)AfAm Est GFR (CKD-EPI)NonAf Random Glucose Hemoglobin A1c % Lactic Acid 1.0 Calcium Phosphorus Magnesium Total Bilirubin AST ALT Alkaline Phosphatase Creatine Kinase Creatine Kinase Index CK-MB (CK-2) Troponin I Total Protein Albumin Triglycerides Cholesterol Total LDL Cholesterol HDL Cholesterol TSH Urine Color Yellow Urine Appearance Clear Urine pH 5.0 Ur Specific [place] 1.020 Urine Protein Negative Urine Glucose (UA) Negative Urine Ketones Trace H Urine Blood Trace Urine Nitrite Negative Urine Bilirubin Negative Urine Urobilinogen 0.2 Ur Leukocyte Esterase Negative Urine WBC (Auto) 1 Urine RBC (Auto) 1 Urine Casts (Auto) 2 U Epithel Cells (Auto) 0.3 Urine Bacteria (Auto) 0.5 06/14/19 06/14/19 06/15/19 22:42 23:45 06:23 WBC 6.2 RBC 4.36 Hgb 12.6 Hct 37.8 MCV 86.6 MCH 28.9 MCHC 33.4 RDW 14.2 Plt Count 212 MPV 8.5 Absolute Neuts (auto) 4.6 Neutrophils % 74.7 Lymphocytes % 6.8 L Monocytes % 13.8 H Eosinophils % 4.2 Basophils % 0.5 Nucleated RBC % 0 PT with INR INR PTT (Actin FS) Anticoagulation Therapy No Result Required. Puncture Site Right radial ABG pH 7.40 ABG pCO2 at Pt Temp 35.3 ABG pO2 at Pt Temp 78.5 L ABG HCO3 21.4 L ABG O2 Sat (Measured) 95.4 ABG O2 Content 15.7 ABG Base Excess -2.3 L Ramon Test Positive VBG pH POC VBG pCO2 POC VBG pO2 VBG HCO3 VBG O2 Sat (Usman) VBG Base Excess O2 Delivery Device R/air Oxygen Flow Rate 21% Vent Mode No Result Required. Vent Rate No Result Required. Mechanical Rate No Result Required. Pressure Support Vent No Result Required. Sodium Potassium Chloride Carbon Dioxide Anion Gap BUN Creatinine Est GFR (CKD-EPI)AfAm Est GFR (CKD-EPI)NonAf Random Glucose Hemoglobin A1c % Lactic Acid Calcium Phosphorus Magnesium Total Bilirubin AST ALT Alkaline Phosphatase Creatine Kinase Creatine Kinase Index CK-MB (CK-2) Troponin I < 0.02 Total Protein Albumin Triglycerides Cholesterol Total LDL Cholesterol HDL Cholesterol TSH Urine Color Urine Appearance Urine pH Ur Specific [place] Urine Protein Urine Glucose (UA) Urine Ketones Urine Blood Urine Nitrite Urine Bilirubin Urine Urobilinogen Ur Leukocyte Esterase Urine WBC (Auto) Urine RBC (Auto) Urine Casts (Auto) U Epithel Cells (Auto) Urine Bacteria (Auto) 06/15/19 06/15/19 06/15/19 06:23 06:23 06:23 WBC RBC Hgb Hct MCV MCH MCHC RDW Plt Count MPV Absolute Neuts (auto) Neutrophils % Lymphocytes % Monocytes % Eosinophils % Basophils % Nucleated RBC % PT with INR INR PTT (Actin FS) Anticoagulation Therapy Puncture Site ABG pH ABG pCO2 at Pt Temp ABG pO2 at Pt Temp ABG HCO3 ABG O2 Sat (Measured) ABG O2 Content ABG Base Excess Ramon Test VBG pH POC VBG pCO2 POC VBG pO2 VBG HCO3 VBG O2 Sat (Usman) VBG Base Excess O2 Delivery Device Oxygen Flow Rate Vent Mode Vent Rate Mechanical Rate Pressure Support Vent Sodium 143 Potassium 3.8 Chloride 112 H Carbon Dioxide 24 Anion Gap 7 L BUN 11.5 Creatinine 0.9 Est GFR (CKD-EPI)AfAm 104.24 Est GFR (CKD-EPI)NonAf 89.94 Random Glucose 80 Hemoglobin A1c % 5.7 Lactic Acid Calcium 8.7 Phosphorus 3.2 Magnesium 2.2 Total Bilirubin AST ALT Alkaline Phosphatase Creatine Kinase Creatine Kinase Index CK-MB (CK-2) Troponin I < 0.02 Total Protein Albumin Triglycerides 67 Cholesterol 178 Total LDL Cholesterol 119 H HDL Cholesterol 47 TSH 0.79 Urine Color Urine Appearance Urine pH Ur Specific [place] Urine Protein Urine Glucose (UA) Urine Ketones Urine Blood Urine Nitrite Urine Bilirubin Urine Urobilinogen Ur Leukocyte Esterase Urine WBC (Auto) Urine RBC (Auto) Urine Casts (Auto) U Epithel Cells (Auto) Urine Bacteria (Auto) 06/15/19 08:35 WBC RBC Hgb Hct MCV MCH MCHC RDW Plt Count MPV Absolute Neuts (auto) Neutrophils % Lymphocytes % Monocytes % Eosinophils % Basophils % Nucleated RBC % PT with INR INR PTT (Actin FS) 138.9 H Anticoagulation Therapy Puncture Site ABG pH ABG pCO2 at Pt Temp ABG pO2 at Pt Temp ABG HCO3 ABG O2 Sat (Measured) ABG O2 Content ABG Base Excess Ramon Test VBG pH POC VBG pCO2 POC VBG pO2 VBG HCO3 VBG O2 Sat (Usman) VBG Base Excess O2 Delivery Device Oxygen Flow Rate Vent Mode Vent Rate Mechanical Rate Pressure Support Vent Sodium Potassium Chloride Carbon Dioxide Anion Gap BUN Creatinine Est GFR (CKD-EPI)AfAm Est GFR (CKD-EPI)NonAf Random Glucose Hemoglobin A1c % Lactic Acid Calcium Phosphorus Magnesium Total Bilirubin AST ALT Alkaline Phosphatase Creatine Kinase Creatine Kinase Index CK-MB (CK-2) Troponin I Total Protein Albumin Triglycerides Cholesterol Total LDL Cholesterol HDL Cholesterol TSH Urine Color Urine Appearance Urine pH Ur Specific [place] Urine Protein Urine Glucose (UA) Urine Ketones Urine Blood Urine Nitrite Urine Bilirubin Urine Urobilinogen Ur Leukocyte Esterase Urine WBC (Auto) Urine RBC (Auto) Urine Casts (Auto) U Epithel Cells (Auto) Urine Bacteria (Auto) S1 S2 RRR Lungs clear Abd-soft, obese, NT trace edema to left leg no calf tenderness PLAN on heparin GTT Will need oral AC -- provoked PE\DVT cardiology and Pulmonary consults called cardiac monitoring continue with meds Problem List - Problems (1) Asthma Code(s): J45.909 - UNSPECIFIED ASTHMA, UNCOMPLICATED (2) COPD (chronic obstructive pulmonary disease) Code(s): J44.9 - CHRONIC OBSTRUCTIVE PULMONARY DISEASE, UNSPECIFIED (3) Chest pain Code(s): R07.9 - CHEST PAIN, UNSPECIFIED (4) HTN (hypertension) Code(s): I10 - ESSENTIAL (PRIMARY) HYPERTENSION (5) History of prostate cancer Code(s): Z85.46 - PERSONAL HISTORY OF MALIGNANT NEOPLASM OF PROSTATE (6) Pulmonary embolism, bilateral Code(s): I26.99 - OTHER PULMONARY EMBOLISM WITHOUT ACUTE COR PULMONALE (7) DVT (deep venous thrombosis) Code(s): I82.409 - ACUTE EMBOLISM AND THOMBOS UNSP DEEP VN UNSP LOWER EXTREMITY
--- NOTE | 2019-06-15 10:47 | EKG ---
Test Reason : Blood Pressure : / mmHG Vent. Rate : 093 BPM Atrial Rate : 093 BPM P-R Int : 150 ms QRS Dur : 106 ms QT Int : 350 ms P-R-T Axes : 033 004 065 degrees QTc Int : 435 ms NORMAL SINUS RHYTHM POSSIBLE LEFT ATRIAL ENLARGEMENT INCOMPLETE RIGHT BUNDLE BRANCH BLOCK BORDERLINE ECG WHEN COMPARED WITH ECG OF 14-APR-2018 14:35, NO SIGNIFICANT CHANGE WAS FOUND Confirmed by REEMA SERNA, YENY ([id number]) on 06/15/2019 10:47:26 AM Referred By: Confirmed By:YENY BENAVIDEZ MD
--- NOTE | 2019-06-15 10:51 | CON.CARD ---
Consult Consult Specialty:: Cardiology Referred by:: Medicine Reason for Consultation:: chest pain - History of Present Illness Chief Complaint: chest pain, dyspnea History of Present Illness: 64M h/o HTN, COPD, asthma, prostate Ca p/w chest pain, dyspnea for three days. [place], last two days became very short of breath walking up. Also complained of a heaviness in his chest, substernal and L side, not radiating. Recently had stress test, echo, not sure where that were reportedly unremarkable. Also had 6 hour bus ride from [place] a few days ago. CTA chest in ER showed bilateral PE, started on heparin gtt. - Past Medical History Cardio/Vascular: Yes: HTN Pulmonary: Yes: Asthma, COPD Renal/: Yes: Cancer (Prostate) - Alcohol/Substance Use Hx Alcohol Use: No History of Substance Use: reports: None - Smoking History Smoking history: Never smoked Have you smoked in the past 12 months: No - Social History ADL: Independent (Steamfitter) History of Recent Travel: Yes (Bus Trip +4/5 hrs- [facility]) Home Medications - Allergies Allergies/Adverse Reactions: Allergies Allergy/AdvReac Type Severity Reaction Status Date / Time almond Allergy Verified 06/14/19 18:10 [place] nut Allergy Verified 06/15/19 05:54 oyster extract Allergy Verified 06/14/19 18:10 shellfish derived Allergy Verified 06/15/19 05:54 HAY FEVER Allergy Uncoded 06/14/19 18:10 - Home Medications Home Medications: Ambulatory Orders Amlodipine Besylate/Benazepril [Lotrel 10-20 mg Capsule] 1 cap PO HS 01/18/19 Budesonide/Formeterol Fumarate [SYMBICORT 160/4.5mcg -] 1 inh PO DAILY 01/18/19 Diphenhydramine [Benadryl -] 50 mg PO ASDIR 01/18/19 Montelukast Sodium [Singulair] 10 mg PO HS 01/18/19 Family Medical History Family History: Unremarkable Review of Systems - Review of Systems Constitutional: reports: No Symptoms Eyes: reports: No Symptoms HENT: reports: No Symptoms Neck: reports: No Symptoms Cardiovascular: reports: Chest Pain, Shortness of Breath Respiratory: reports: No Symptoms Gastrointestinal: reports: No Symptoms Genitourinary: reports: No Symptoms Musculoskeletal: reports: No Symptoms Integumentary: reports: No Symptoms Neurological: reports: No Symptoms Endocrine: reports: No Symptoms Hematology/Lymphatic: reports: No Symptoms Psychiatric: reports: No Symptoms Vital Signs: Vital Signs Temperature 97.6 F 06/15/19 09:34 Pulse Rate 73 06/15/19 09:34 Respiratory Rate 18 06/15/19 09:34 Blood Pressure 159/90 06/15/19 09:34 O2 Sat by Pulse Oximetry (%) 96 06/15/19 09:34 Constitutional: Yes: No Distress, Calm Eyes: Yes: Conjunctiva Clear, EOM Intact HENT: Yes: Atraumatic, Normocephalic Neck: Yes: Supple, Trachea Midline Respiratory: Yes: Regular, CTA Bilaterally Gastrointestinal: Yes: Normal Bowel Sounds, Soft Cardiovascular: Yes: Regular Rate and Rhythm JVD: No PMI: Non-Displaced Heart Sounds: Yes: S1, S2 Extremities: No: Cold Edema: No Integumentary: No: Jaundice Neurological: Yes: Alert, Oriented Psychiatric: No: Agitated - Other Data Labs, Other Data: CBC, BMP 06/15/19 06:23 06/15/19 06:23 INR, PTT INR 1.21 (0.83-1.09) H 06/14/19 18:20 Troponin, BNP 06/14/19 06/14/19 06/15/19 18:20 22:42 06:23 Troponin I < 0.02 < 0.02 < 0.02 Troponin, BNP 06/14/19 06/14/19 06/15/19 18:20 22:42 06:23 Troponin I < 0.02 < 0.02 < 0.02 Assessment/Plan EKG: sinus, IRBBB,no ischemic changes lower ext venous dopplers: DVT L popliteal vein CTA chest: acute carlos upper and lower central PE, possible CT evidence of increased pulm arterial pressure, small R post basilar opacity infiltrate vs focal edema tele: sinus nadine pulmonary embolism - on heparin gtt, manage AC per pulm, consider heme consult - check echo for RV function, pulm pressures HTN - cont home meds COPD - manage per primary
[2019-06-15] MEDS: BUDESONIDE/FORMETEROL FUMARATE 160/4.5 mcg INHALER IH SCH ×2 (10:59→21:29)
--- NOTE | 2019-06-15 13:02 | CON.PULM ---
Consult Consult Specialty:: PULMONARY Referred by:: Dr Ventura Reason for Consultation:: pulmonary embolism - History of Present Illness Chief Complaint: shortness of breath History of Present Illness: 64yo male with h/o HTN, asthma/COPD, prostate ca who was admitted with shortness of breath x 2 days. Reports left sided chest pressure without nausea or palpitations. No history of blood clots. He is a never smoker. Had a 6 hour bus ride about 2 weeks ago. No leg trauma. Found to have bilateral pulmonary emboli and a left popliteal DVT. He is a head librarian. He is due for a colonoscopy soon. - History Source History Provided By: Patient, Medical Record Limitations to Obtaining History: No Limitations - Past Medical History Cardio/Vascular: Yes: HTN Pulmonary: Yes: Asthma, COPD Renal/: Yes: Cancer (Prostate) - Alcohol/Substance Use Hx Alcohol Use: No History of Substance Use: reports: None - Smoking History Smoking history: Never smoked Have you smoked in the past 12 months: No - Social History ADL: Independent (Procurement Buyer) History of Recent Travel: Yes (Bus Trip +4/5 hrs- [facility]) Home Medications - Allergies Allergies/Adverse Reactions: Allergies Allergy/AdvReac Type Severity Reaction Status Date / Time almond Allergy Verified 06/14/19 18:10 [place] nut Allergy Verified 06/15/19 05:54 oyster extract Allergy Verified 06/14/19 18:10 shellfish derived Allergy Verified 06/15/19 05:54 HAY FEVER Allergy Uncoded 06/14/19 18:10 - Home Medications Home Medications: Ambulatory Orders Amlodipine Besylate/Benazepril [Lotrel 10-20 mg Capsule] 1 cap PO HS 01/18/19 Budesonide/Formeterol Fumarate [SYMBICORT 160/4.5mcg -] 1 inh PO DAILY 01/18/19 Diphenhydramine [Benadryl -] 50 mg PO ASDIR 01/18/19 Montelukast Sodium [Singulair] 10 mg PO HS 01/18/19 Review of Systems - Review of Systems Constitutional: denies: Chills, Fever Eyes: denies: Recent Change in Vision HENT: denies: Nasal Congestion, Throat Pain Neck: denies: Stiffness, Tenderness Cardiovascular: reports: Chest Pain, Shortness of Breath. denies: Edema, Palpitations Respiratory: reports: Cough. denies: Hemoptysis, Wheezing Gastrointestinal: denies: Abdominal Pain, Nausea, Vomiting Genitourinary: denies: Dysuria, Hematuria Neurological: denies: Dizziness, Headache Endocrine: denies: Unexplained Weight Loss Physical Exam Vital Sings: Vital Signs Temperature 97.6 F 06/15/19 09:34 Pulse Rate 73 06/15/19 09:34 Respiratory Rate 18 06/15/19 09:34 Blood Pressure 159/90 06/15/19 09:34 O2 Sat by Pulse Oximetry (%) 96 06/15/19 09:34 Constitutional: Yes: Calm Eyes: Yes: Conjunctiva Clear, EOM Intact HENT: Yes: Atraumatic, Normocephalic Neck: Yes: Supple, Trachea Midline Cardiovascular: Yes: Regular Rate and Rhythm Respiratory: Yes: Diminished (decreased breath sounds at the bases) ...Clubbing: No Gastrointestinal: Yes: Normal Bowel Sounds, Soft. No: Tenderness Edema: No Labs: CBC, BMP 06/15/19 06:23 06/15/19 06:23 ABG Results ABG pH 7.40 (7.35-7.45) 06/14/19 23:45 ABG pCO2 at Pt Temp 35.3 mmHg (35-45) 06/14/19 23:45 ABG pO2 at Pt Temp 78.5 mmHg (80-100) L 06/14/19 23:45 ABG HCO3 21.4 mmol/L (22-27) L 06/14/19 23:45 ABG O2 Sat (Measured) 95.4 % (95-98) 06/14/19 23:45 ABG O2 Content 15.7 % vol 06/14/19 23:45 ABG Base Excess -2.3 meq/l (-2-2) L 06/14/19 23:45 Imaging - Results Chest X-ray: Report Reviewed, Image Reviewed Cat Scan: Report Reviewed, Image Reviewed (bilateral PE) Problem List - Problems (1) Pulmonary embolism, bilateral Code(s): I26.99 - OTHER PULMONARY EMBOLISM WITHOUT ACUTE COR PULMONALE Assessment/Plan Acute Pulmonary Emboli L Popliteal DVT COPD Prostate Ca - echocardiogram - can start oral anticoagulation if RV function normal - O2 to keep SpO2 >90% - will need anticoagulation for at least 6 months Thank you for this consult Tom Traylor MD
[2019-06-15 15:21] VITALS: BMI 31.4
--- NOTE | 2019-06-15 16:05 | ECHO ---
Name: ANTONETTE FERNANDEZ Exam:Adult Echocardiogram Study Date: 06/15/2019 11:59 AM Age: 64 yrs Height: 69 in Weight: 219 lb BSA: 2.1 m2 MMode/2D Measurements & Calculations IVSd: 0.88 cm Ao root diam: 3.7 cm LVIDd: 5.6 cm LA dimension: 3.0 cm LVIDs: 3.2 cm ACS: 2.2 cm LVPWd: 0.99 cm IVSs: 1.4 cm LVPWs: 1.5 cm EDV(Teich): 151.3 ml ESV(Teich): 41.1 ml Doppler Measurements & Calculations MV E max benjamín: 51.3 cm/sec Ao V2 max: 144.5 cm/sec MV A max benjamín: 70.3 cm/sec Ao max P.3 mmHg MV E/A: 0.73 Ao V2 mean: 88.6 cm/sec Ao mean P.7 mmHg Ao V2 VTI: 24.7 cm TR max benjamín: 342.4 cm/sec Med Peak E' Benjamín: 5.6 cm/sec TR max P.9 mmHg Med E/e': 9.2 Lat Peak E' Benjamín: 8.7 cm/sec Lat E/e': 5.9 Procedure A two-dimensional transthoracic echocardiogram with color flow and Doppler was performed. Left Ventricle The left ventricular size, thickness and function are normal. The left ventricular ejection fraction is normal. E/A reversal consistent with but not diagnostic of poor LV compliance. The left ventricular w all motion is normal. Right Ventricle The right ventricle is not well visualized. The right ventricle is mildly dilated. The right ventricu lar systolic function is mildly reduced. Atria Normal left and right atrial size and function. Tricuspid Valve There is mild tricuspid valve thickening. There is no tricuspid stenosis. There is mild tricuspid regurgitation. Right ventricular systolic pressure is elevated at 50-60mmHg. Aortic Valve The aortic valve is trileaflet. There is mild aortic valve thickening. There is mild aortic sclerosis .;. No hemodynamically significant valvular aortic stenosis. No aortic regurgitation is present. Pulmonic Valve The pulmonic valve is not well visualized. Great Vessels The aortic root is normal size. Interpretation Summary The left ventricular size, thickness and function are normal The left ventricular ejection fraction is normal. The left ventricular wall motion is normal. There is mild aortic sclerosis.; There is mild aortic valve thickening. The aortic valve is trileaflet. There is mild tricuspid regurgitation. Right ventricular systolic pressure is elevated at 50-60mmHg. E/A reversal consistent with but not diagnostic of poor LV compliance The right ventricle is not well visualized. The right ventricle is mildly dilated. The right ventricular systolic function is mildly reduced. MD Dipak Mccullough 06/15/2019 04:04 PM
[2019-06-15] MEDS: MONTELUKAST NA 10 MG TABLET PO SCH (21:22)
[2019-06-15] MEDS ORDERED: PATIENT'S OWN MEDICATION (NON-FORMULARY) (Amlodipine Besylate/Benazepril [Lotrel 10-20 Mg PO SCH (22:00)
[2019-06-15] MEDS ORDERED: amLODIPine BESYLATE 10 MG TABLET (FP) PO SCH (22:00)
[2019-06-15] MEDS ORDERED: LISINOPRIL 20 MG TABLET (FP) PO SCH (22:00)
--- NOTE | 2019-06-15 22:38 | CONSULT ---
Consultation: REQUESTING PROVIDER: Dr. Davies CONSULT REQUEST: We have been asked to medically evaluate this patient for Bilateral PE with DVT. HISTORY OF PRESENT ILLNESS: Pt. is a 64 y.o. M w/ PMHx. of HTN, COPD, Asthma, and Prostate Ca (s/p surgery and RT completed in 03/2019) presents with shortness of breath associated with chest pain. Pt. admitted for bilateral PE with L. Popliteal DVT. Pt. states that he had been having constant pain in his chest for a few days in addition to a cough (no sputum production) for around 1 week. Of note Pt. endorses traveling from [facility] by vehicle recently. Pt. states that on arrival from [facility] he noted the shortness of breath and was unable to walk up hill to his job without feeling SOB. At that time he had associated left hand numbness and "felt like a baby was on his chest." Pt. states that he recently lost 90 pounds intentionally. Pt. states that he took his home medications which did not help his chest pain. CTA found bilateral upper and lower lobe central PE, with evidence on increased PASP, R. basilar opacity consistent with infiltrate vs. edema from pulmonary infarction and trace right pleural effusion. Echo (06/15/19) RV mildly elevated with systolic function mildly reduced shows poor LV compliance suggestive of HFpEF and elevated RV pressures to 40-50mm Hg. Lexiscan from October 2018 was unremarkable. Pt was started on Heparin gtt. Pt denies ever having PE in past and was diagnosed with Prostate CA in August. Pt. currently denies any chest pain, numbness/tingling in extremities, lightheadedness, dizziness or any other concerning symptoms at this time. REVIEW OF SYSTEMS: As above. PHYSICAL EXAMINATION Vital Signs - 24 hr 06/14/19 06/14/19 06/15/19 22:45 23:00 05:15 Temperature Pulse Rate Pulse Rate [ 88 69 Left Radial] Respiratory 20 20 Rate Blood Pressure Blood Pressure 147/80 141/79 [Right Arm] O2 Sat by Pulse 95 95 95 Oximetry (%) 06/15/19 06/15/19 06/15/19 06:46 09:00 09:34 Temperature 97 F L 97.6 F Pulse Rate Pulse Rate [ 78 73 Left Radial] Respiratory 16 18 18 Rate Blood Pressure Blood Pressure 127/79 159/90 [Right Arm] O2 Sat by Pulse 98 96 96 Oximetry (%) 06/15/19 06/15/19 06/15/19 14:35 14:40 17:00 Temperature 98.8 F 98.8 F 99.0 F Pulse Rate 81 81 82 Pulse Rate [ Left Radial] Respiratory 20 20 20 Rate Blood Pressure 151/94 151/94 157/92 Blood Pressure [Right Arm] O2 Sat by Pulse 95 95 Oximetry (%) 06/15/19 21:00 Temperature 99.2 F Pulse Rate 73 Pulse Rate [ Left Radial] Respiratory 20 Rate Blood Pressure 158/84 Blood Pressure [Right Arm] O2 Sat by Pulse 94 L Oximetry (%) GENERAL: Awake, alert, and fully oriented, in no acute distress. HEAD: Normal with no signs of trauma. EYES: Extraocular muscles intact, sclera anicteric, conjunctiva clear. EARS, NOSE, THROAT: Ears normal, nares patent, oropharynx clear without exudates. Moist mucous membranes. NECK: Normal range of motion, supple without lymphadenopathy, JVD, or masses. LUNGS: Breath sounds equal, clear to auscultation bilaterally. No wheezes, and no crackles. No accessory muscle use. HEART: Regular rate and rhythm, normal S1 and S2 without murmur, rub or gallop. ABDOMEN: Soft, nontender, not distended, normoactive bowel sounds, no guarding, no rebound UPPER EXTREMITIES: 2+ radial pulses, warm, well-perfused. No cyanosis. No peripheral edema. LOWER EXTREMITIES: 2+ dorsal pedal pulses, warm, well-perfused. No calf tenderness. No peripheral edema. NEUROLOGICAL: Cranial nerves II-XII grossly intact. Normal speech. PSYCHIATRIC: Cooperative. Good eye contact. Appropriate mood and affect. SKIN: Warm, dry, normal turgor Laboratory Results - last 24 hr 06/14/19 06/14/19 06/14/19 18:20 22:42 23:45 WBC RBC Hgb Hct MCV MCH MCHC RDW Plt Count MPV Absolute Neuts (auto) Neutrophils % Lymphocytes % Monocytes % Eosinophils % Basophils % Nucleated RBC % PT with INR 14.30 H INR 1.21 H PTT (Actin FS) 36.1 Anticoagulation Therapy No Result Required. Puncture Site Right radial ABG pH 7.40 ABG pCO2 at Pt Temp 35.3 ABG pO2 at Pt Temp 78.5 L ABG HCO3 21.4 L ABG O2 Sat (Measured) 95.4 ABG O2 Content 15.7 ABG Base Excess -2.3 L Ramon Test Positive O2 Delivery Device R/air Oxygen Flow Rate 21% Vent Mode No Result Required. Vent Rate No Result Required. Mechanical Rate No Result Required. Pressure Support Vent No Result Required. Sodium Potassium Chloride Carbon Dioxide Anion Gap BUN Creatinine Est GFR (CKD-EPI)AfAm Est GFR (CKD-EPI)NonAf Random Glucose Hemoglobin A1c % Calcium Phosphorus Magnesium Troponin I < 0.02 Triglycerides Cholesterol Total LDL Cholesterol HDL Cholesterol TSH 06/15/19 06/15/19 06/15/19 06:23 06:23 06:23 WBC 6.2 RBC 4.36 Hgb 12.6 Hct 37.8 MCV 86.6 MCH 28.9 MCHC 33.4 RDW 14.2 Plt Count 212 MPV 8.5 Absolute Neuts (auto) 4.6 Neutrophils % 74.7 Lymphocytes % 6.8 L Monocytes % 13.8 H Eosinophils % 4.2 Basophils % 0.5 Nucleated RBC % 0 PT with INR INR PTT (Actin FS) Anticoagulation Therapy Puncture Site ABG pH ABG pCO2 at Pt Temp ABG pO2 at Pt Temp ABG HCO3 ABG O2 Sat (Measured) ABG O2 Content ABG Base Excess Ramon Test O2 Delivery Device Oxygen Flow Rate Vent Mode Vent Rate Mechanical Rate Pressure Support Vent Sodium 143 Potassium 3.8 Chloride 112 H Carbon Dioxide 24 Anion Gap 7 L BUN 11.5 Creatinine 0.9 Est GFR (CKD-EPI)AfAm 104.24 Est GFR (CKD-EPI)NonAf 89.94 Random Glucose 80 Hemoglobin A1c % 5.7 Calcium 8.7 Phosphorus 3.2 Magnesium 2.2 Troponin I Triglycerides 67 Cholesterol 178 Total LDL Cholesterol 119 H HDL Cholesterol 47 TSH 0.79 06/15/19 06/15/19 06/15/19 06:23 08:35 20:40 WBC RBC Hgb Hct MCV MCH MCHC RDW Plt Count MPV Absolute Neuts (auto) Neutrophils % Lymphocytes % Monocytes % Eosinophils % Basophils % Nucleated RBC % PT with INR INR PTT (Actin FS) 138.9 H 86.6 H Anticoagulation Therapy Puncture Site ABG pH ABG pCO2 at Pt Temp ABG pO2 at Pt Temp ABG HCO3 ABG O2 Sat (Measured) ABG O2 Content ABG Base Excess Ramon Test O2 Delivery Device Oxygen Flow Rate Vent Mode Vent Rate Mechanical Rate Pressure Support Vent Sodium Potassium Chloride Carbon Dioxide Anion Gap BUN Creatinine Est GFR (CKD-EPI)AfAm Est GFR (CKD-EPI)NonAf Random Glucose Hemoglobin A1c % Calcium Phosphorus Magnesium Troponin I < 0.02 Triglycerides Cholesterol Total LDL Cholesterol HDL Cholesterol TSH Active Medications Home Medications Medication Instructions Recorded Amlodipine Besylate/Benazepril 1 cap PO HS 01/18/19 [Lotrel 10-20 mg Capsule] Budesonide/Formeterol Fumarate 1 inh PO DAILY 01/18/19 [SYMBICORT 160/4.5mcg -] Diphenhydramine [Benadryl -] 50 mg PO ASDIR 01/18/19 Montelukast Sodium [Singulair] 10 mg PO HS 01/18/19 Current Medications Amlodipine Besylate (Norvasc -) 10 mg PO HS GUANAKO Last Admin: 06/15/19 21:22 Dose: 10 mg Budesonide/Formoterol Fumarate (Symbicort 160/4.5mcg -) 2 puff IH BID GUANAKO Last Admin: 06/15/19 21:29 Dose: 2 puff Heparin Sodium (Porcine) (Heparin -) 5,000 unit IVPUSH PRN PRN PRN Reason: Heparin Heparin Sodium (Porcine) (Heparin -) 1,000 unit IVPUSH PRN PRN PRN Reason: Heparin Heparin Sodium (Porcine) 25, (000 unit/ Sodium Chloride) 500 mls @ 36 mls/hr IV TITR GUANAKO; Protocol Last Titration: 06/15/19 11:35 Dose: 1,650 unit/hr, 33 mls/hr Lisinopril (Prinivil) 20 mg PO HS GUANAKO Last Admin: 06/15/19 21:22 Dose: 20 mg Montelukast Sodium (Singulair -) 10 mg PO HS GUANAKO Last Admin: 06/15/19 21:22 Dose: 10 mg ASSESSMENT/PLAN: Pt. is a 64 y.o. M w/ PMHx. of HTN, COPD, Asthma, and Prostate Ca (s/p surgery and RT completed in 03/2019) presents with shortness of breath associated with chest pain. Pt. admitted for bilateral PE with L. Popliteal DVT. #Pulmonology Bilateral PE COPD Asthma Pulmonology consult appreciated c/w Monteleukast c/w Heparin gtt, will monitor PTT and Stool occult blood as per protocol an Pt. for thrombectomy with Dr. Dow? f/u CXR in AM CTA appreciated as above #Cardiology HTN c/w Lisinopril and Norvasc EKG appreciated: unchanged from prior EKG on this admission; shows NSR, incomplete RBBB?, QTc: 435 Troponins Neg. x 2 Cardiology consult (Dr. Davies) appreciated Echo appreciated as above c/w cardiac monitoring #Urology Hx. of Prostate CA c/w AC no active process currently; s/p treatment #FEN No IVF, encourage PO intake monitor electrolytes and replete as needed Na restricted Diet #DVT Ppx. c/w Heparin gtt Dispo: We will continue to follow the patient. Thank you for this consultative opportunity. Visit type - Emergency Visit Emergency Visit: Yes ED Registration Date: 06/14/19 Care time: The patient presented to the Emergency Department on the above date and was hospitalized for further evaluation of their emergent condition. - New Patient This patient is new to me today: Yes Date on this admission: 06/15/19 - Critical Care Critical Care patient: Yes Total Critical Care Time (in minutes): 35 Critical Care Statement: The care of this patient involved high complexity decision making to prevent further life threatening deterioration of the patient 's condition and/or to evaluate & treat vital organ system(s) failure or risk of failure. ATTENDING PHYSICIAN STATEMENT I saw and evaluated the patient. I reviewed the resident's note and discussed the case with the resident. I agree with the resident's findings and plan as documented. SUBJECTIVE: OBJECTIVE: ASSESSMENT AND PLAN:
[2019-06-16] MEDS ORDERED: hydrALAZINE HCL 20 MG/ML VIAL IVPUSH ONE (00:54)
[2019-06-16] MEDS: HEPARIN - 25,000 UNIT in SODIUM CHLORIDE 495 ML IV SCH (00:59)
[2019-06-16 07:09] LABS: BASO % 0.6 % (0-2.0); EOS % 7.3 % (0-4.5); HEMATOCRIT 42.1 % (35.4-49); HEMOGLOBIN 14.1 GM/dL (11.7-16.9); LYMPH % 11.1 % (8-40); MCH 28.8 pg (25.7-33.7); MCHC 33.4 g/dl (32.0-35.9); MEAN PLT VOLUME 8.1 fl (7.5-11.1); MONO % 11.3 % (3.8-10.2); NEUT % 69.7 % (42.8-82.8); PLATELET COUNT 227 K/MM3 (134-434); RBC 4.89 M/mm3 (4.00-5.60); RDW 13.9 % (11.9-15.9); WHITE BLOOD COUNT 5.1 K/mm3 (4.0-10.0)
--- NOTE | 2019-06-16 08:18 | PN ---
Progress Note, Physician Chief Complaint: Selected Entries 06/16/19 06/16/19 06/16/19 01:12 02:00 04:00 Pulse Rate 67 62 Blood Pressure 163/88 154/84 174/83 H 06/16/19 05:19 Pulse Rate 62 Blood Pressure 174/83 H History of Present Illness: seen and examined in ICU: no CP, SOB, palps. TELE: NSR Echo: Dilated RV w/ mildly reduced RV fx and RVSP 50-60mmHg - Current Medication List Current Medications: Active Medications Amlodipine Besylate (Norvasc -) 10 mg PO HS [facility] Last Admin: 06/15/19 21:22 Dose: 10 mg Budesonide/Formoterol Fumarate (Symbicort 160/4.5mcg -) 2 puff IH BID GUANAKO Last Admin: 06/15/19 21:29 Dose: 2 puff Heparin Sodium (Porcine) (Heparin -) 5,000 unit IVPUSH PRN PRN PRN Reason: Heparin Heparin Sodium (Porcine) (Heparin -) 1,000 unit IVPUSH PRN PRN PRN Reason: Heparin Heparin Sodium (Porcine) 25, (000 unit/ Sodium Chloride) 500 mls @ 36 mls/hr IV TITR GUANAKO; Protocol Last Admin: 06/16/19 00:59 Dose: Not Given Lisinopril (Prinivil) 20 mg PO HS [facility] Last Admin: 06/15/19 21:22 Dose: 20 mg Montelukast Sodium (Singulair -) 10 mg PO HS [facility] Last Admin: 06/15/19 21:22 Dose: 10 mg - Objective Vital Signs: Vital Signs Temperature 98.9 F 06/16/19 02:00 Pulse Rate 62 06/16/19 05:19 Respiratory Rate 19 06/16/19 05:19 Blood Pressure 174/83 H 06/16/19 05:19 O2 Sat by Pulse Oximetry (%) 94 L 06/16/19 00:57 Constitutional: Yes: No Distress, Calm Eyes: Yes: Conjunctiva Clear HENT: Yes: Atraumatic Neck: Yes: Supple Cardiovascular: Yes: Regular Rate and Rhythm Respiratory: Yes: CTA Bilaterally (no rales or wheezing) Gastrointestinal: Yes: Soft (NT) Edema: No Neurological: Yes: Alert, Oriented ...Motor Strength: WNL Labs: CBC, BMP 06/16/19 06:40 INR, PTT INR 1.21 (0.83-1.09) H 06/14/19 18:20 Laboratory Tests 06/14/19 06/14/19 06/15/19 22:42 23:45 06:23 WBC Hgb Plt Count PTT (Actin FS) ABG pH 7.40 Sodium 143 Potassium 3.8 Creatinine 0.9 Troponin I < 0.02 06/15/19 06/16/19 06/16/19 06:23 06:40 06:40 WBC 5.1 Hgb 14.1 Plt Count 227 PTT (Actin FS) 91.9 H ABG pH Sodium Potassium Creatinine Troponin I < 0.02 06/16/19 06:40 WBC Hgb Plt Count PTT (Actin FS) ABG pH Sodium Pending Potassium Pending Creatinine Pending Troponin I - ....Imaging EKG: Image Reviewed Assessment/Plan Assessment/Plan EKG: sinus, IRBBB,no ischemic changes lower ext venous dopplers: DVT L popliteal vein CTA chest: acute carlos upper and lower central PE, possible CT evidence of increased pulm arterial pressure, small R post basilar opacity infiltrate vs focal edema tele: sinus nadine Pulmonary embolism: submassive with RV dilatation and PHTN, hemodynamically stable with negative TnI -ICU monitoring -Case discussed with ICU attending (Dr. Traylor) and Interventional Radiology (Dr. Dow). As patient is hemodynamically stable since admission and at this time , no indication for emergent lysis. Patient would benefit from lysis prior to discharge to help prevent mcfp complications of this PE such as chronic PHTN and RV failure. -Plan is if for catheter guided lysis tomorrow by IR -As per d/w Critical Care and IR, will switch UFH gtts to Lovenox 1mg/kg SQ BID -Check BNP, prognostic marker HTN - cont home meds COPD - manage per primary
[2019-06-16 08:25] LABS: ALBUMIN 3.4 g/dl (3.4-5.0); BILIRUBIN,TOTAL 0.6 mg/dL (0.2-1); BLOOD UREA NITROGEN 10.5 mg/dL (7-18); CALCIUM 9.1 mg/dL (8.5-10.1); CREATININE 0.9 mg/dL (0.55-1.3); POTASSIUM 3.5 mmol/L (3.5-5.1); TOT PROT 6.8 g/dl (6.4-8.2)
--- NOTE | 2019-06-16 09:04 | PN ---
Teaching Attending Note Name of Resident: Carleen Damon ATTENDING PHYSICIAN STATEMENT I saw and evaluated the patient. I reviewed the resident's note and discussed the case with the resident. I agree with the resident's findings and plan as documented. SUBJECTIVE: Pt seen and examined in the ICU. States breathing is improving. No chest pain or palpitations. Echocardiogram showing pulmonary HTN and mildly reduced RV function. OBJECTIVE: Vital Signs Period Temp Pulse Resp BP Sys/Barker Pulse Ox Last 24 Hr 97.6 F-99.2 F 62-82 16-20 151-174/83-94 94-96 Intake & Output 06/13/19 06/14/19 06/15/19 06/16/19 23:59 23:59 23:59 23:59 Intake Total 453 548 Output Total 650 800 Balance -197 -252 Weight 99.337 kg 96.615 kg Gen: NAD at rest Heart: RRR Lung: decreased breath sounds at the bases Abd: soft, nontender Ext: no edema CBC, BMP 06/16/19 06:40 06/16/19 06:40 Active Medications Amlodipine Besylate (Norvasc -) 10 mg PO HS GUANAKO Last Admin: 06/15/19 21:22 Dose: 10 mg Budesonide/Formoterol Fumarate (Symbicort 160/4.5mcg -) 2 puff IH BID GUANAKO Last Admin: 06/15/19 21:29 Dose: 2 puff Heparin Sodium (Porcine) (Heparin -) 5,000 unit IVPUSH PRN PRN PRN Reason: Heparin Heparin Sodium (Porcine) (Heparin -) 1,000 unit IVPUSH PRN PRN PRN Reason: Heparin Heparin Sodium (Porcine) 25, (000 unit/ Sodium Chloride) 500 mls @ 36 mls/hr IV TITR GUANAKO; Protocol Last Admin: 06/16/19 00:59 Dose: Not Given Lisinopril (Prinivil) 20 mg PO HS GUANAKO Last Admin: 06/15/19 21:22 Dose: 20 mg Montelukast Sodium (Singulair -) 10 mg PO HS GUANAKO Last Admin: 06/15/19 21:22 Dose: 10 mg ASSESSMENT AND PLAN: Acute Pulmonary Emboli L Popliteal DVT Pulmonary HTN/Cor Pulmonale COPD/Asthma Prostate Ca - continue anticoagulation - for catheter directed thrombectomy/thrombolysis - O2 to keep SpO2 >90% - ICU monitoring for now Problem List - Problems (1) Pulmonary embolism, bilateral Code(s): I26.99 - OTHER PULMONARY EMBOLISM WITHOUT ACUTE COR PULMONALE
--- NOTE | 2019-06-16 09:57 | PN ---
Progress Note (short form) - Note Progress Note: pt in ICU Heparin gtt dc -- now on Lovenox sc full dose no bleeding episodes Vital Signs - 24 hr 06/15/19 06/15/19 06/16/19 21:00 23:30 00:57 Temperature 99.2 F Pulse Rate 73 65 Respiratory 20 20 20 Rate Blood Pressure 158/84 167/84 O2 Sat by Pulse 94 L 94 L Oximetry (%) 06/16/19 06/16/19 06/16/19 01:12 02:00 04:00 Temperature 98.9 F Pulse Rate 78 67 62 Respiratory 18 16 19 Rate Blood Pressure 163/88 154/84 174/83 H O2 Sat by Pulse Oximetry (%) 06/16/19 06/16/19 06/16/19 05:19 09:00 11:00 Temperature 98.4 F 98.2 F Pulse Rate 62 70 84 Respiratory 19 20 25 H Rate Blood Pressure 174/83 H 166/88 147/98 O2 Sat by Pulse 95 Oximetry (%) 06/16/19 06/16/19 06/16/19 13:00 15:00 17:00 Temperature 98.6 F Pulse Rate 79 80 88 Respiratory 32 H 25 H 18 Rate Blood Pressure 154/81 153/82 168/90 O2 Sat by Pulse Oximetry (%) Current Medications Generic Name Dose Route Start Last Admin Trade Name Lazaro PRN Reason Stop Dose Admin Amlodipine Besylate 10 mg 06/16/19 10:00 06/16/19 12:00 Norvasc - PO 10 mg DAILY GUANAKO Administration Budesonide/Formoterol Fumarate 2 puff 06/15/19 10:00 06/16/19 11:25 Symbicort 160/4.5mcg - IH 2 puff BID GUANAKO Administration Enoxaparin Sodium 100 mg 06/16/19 10:00 06/16/19 11:25 Lovenox - SQ 100 mg BID GUANAKO Administration Lisinopril 20 mg 06/16/19 10:00 06/16/19 12:00 Prinivil PO 20 mg DAILY@0800 GUA[facility]KO Administration Montelukast Sodium 10 mg 06/15/19 22:00 06/15/19 21:22 Singulair - PO 10 mg HS GUANAKO Administration Laboratory Results - last 24 hr 06/15/19 06/15/19 06/16/19 18:22 20:40 06:40 WBC RBC Hgb Hct MCV MCH MCHC RDW Plt Count MPV Absolute Neuts (auto) Neutrophils % Lymphocytes % Monocytes % Eosinophils % Basophils % Nucleated RBC % PTT (Actin FS) 44.7 H 86.6 H 91.9 H Sodium Potassium Chloride Carbon Dioxide Anion Gap BUN Creatinine Est GFR (CKD-EPI)AfAm Est GFR (CKD-EPI)NonAf Random Glucose Calcium Total Bilirubin AST ALT Alkaline Phosphatase Total Protein Albumin 06/16/19 06/16/19 06:40 06:40 WBC 5.1 RBC 4.89 Hgb 14.1 Hct 42.1 MCV 86.0 MCH 28.8 MCHC 33.4 RDW 13.9 Plt Count 227 MPV 8.1 Absolute Neuts (auto) 3.6 Neutrophils % 69.7 Lymphocytes % 11.1 D Monocytes % 11.3 H Eosinophils % 7.3 H Basophils % 0.6 Nucleated RBC % 0 PTT (Actin FS) Sodium 138 Potassium 3.5 Chloride 107 Carbon Dioxide 22 Anion Gap 9 BUN 10.5 Creatinine 0.9 Est GFR (CKD-EPI)AfAm 104.24 Est GFR (CKD-EPI)NonAf 89.94 Random Glucose 83 Calcium 9.1 Total Bilirubin 0.6 AST 14 L ALT 15 Alkaline Phosphatase 73 Total Protein 6.8 Albumin 3.4 Lungs clear Abd-soft, obese, NT trace edema to left leg no calf tenderness PLAN on Lovenox sc tomorrow will be going for thrombolysis BP control-- start meds in AM continue with meds Problem List - Problems (1) Asthma Code(s): J45.909 - UNSPECIFIED ASTHMA, UNCOMPLICATED (2) COPD (chronic obstructive pulmonary disease) Code(s): J44.9 - CHRONIC OBSTRUCTIVE PULMONARY DISEASE, UNSPECIFIED (3) Chest pain Code(s): R07.9 - CHEST PAIN, UNSPECIFIED (4) HTN (hypertension) Code(s): I10 - ESSENTIAL (PRIMARY) HYPERTENSION (5) History of prostate cancer Code(s): Z85.46 - PERSONAL HISTORY OF MALIGNANT NEOPLASM OF PROSTATE (6) Pulmonary embolism, bilateral Code(s): I26.99 - OTHER PULMONARY EMBOLISM WITHOUT ACUTE COR PULMONALE (7) DVT (deep venous thrombosis) Code(s): I82.409 - ACUTE EMBOLISM AND THOMBOS UNSP DEEP VN UNSP LOWER EXTREMITY
[2019-06-16] MEDS ORDERED: LISINOPRIL 20 MG TABLET (FP) PO SCH (10:00)
[2019-06-16] MEDS ORDERED: PT OWN MED DRAWER 7, Y5N ONE (11:10)
[2019-06-16] MEDS: ENOXAPARIN NA (PORCINE) 100 MG/1 ML DISP.SYRIN SQ SCH ×2 (11:25→21:19)
[2019-06-16] MEDS: BUDESONIDE/FORMETEROL FUMARATE 160/4.5 mcg INHALER IH SCH ×2 (11:25→21:20)
[2019-06-16] MEDS: amLODIPine BESYLATE 10 MG TABLET (FP) PO SCH (12:00)
--- NOTE | 2019-06-16 13:00 | PN ---
Physical Exam: SUBJECTIVE: Patient seen and examined. States breathing has improved. Denies chest pain, abd pain. No acute events overnight. Patient seen by cardiology this morning. Will go for thrombectomy tomorrow. OBJECTIVE: Vital Signs Period Temp Pulse Resp BP Sys/Barker Pulse Ox Last 24 Hr 98.2 F-99.2 F 62-84 16-25 147-174/83-98 94-95 GENERAL: The patient is awake, alert, and fully oriented, in no acute distress. HEAD: Normal with no signs of trauma. EYES: PERRL, EOMI, no ptosis ENT: moist mucous membranes NECK: Trachea midline, full range of motion, supple. LUNGS: Breath sounds equal, clear to auscultation bilaterally, no wheezes, no crackles, no accessory muscle use. HEART: Regular rate and rhythm, S1, S2 without murmur, rub or gallop. ABDOMEN: Soft, nontender, nondistended, normoactive bowel sounds EXTREMITIES: 2+ pulses, warm, well-perfused, no edema. NEUROLOGICAL: Normal speech, gait not observed. PSYCH: Normal mood, normal affect. Laboratory Results - last 24 hr 06/15/19 06/16/19 06/16/19 20:40 06:40 06:40 WBC 5.1 RBC 4.89 Hgb 14.1 Hct 42.1 MCV 86.0 MCH 28.8 MCHC 33.4 RDW 13.9 Plt Count 227 MPV 8.1 Absolute Neuts (auto) 3.6 Neutrophils % 69.7 Lymphocytes % 11.1 D Monocytes % 11.3 H Eosinophils % 7.3 H Basophils % 0.6 Nucleated RBC % 0 PTT (Actin FS) 86.6 H 91.9 H Sodium Potassium Chloride Carbon Dioxide Anion Gap BUN Creatinine Est GFR (CKD-EPI)AfAm Est GFR (CKD-EPI)NonAf Random Glucose Calcium Total Bilirubin AST ALT Alkaline Phosphatase Total Protein Albumin 06/16/19 06:40 WBC RBC Hgb Hct MCV MCH MCHC RDW Plt Count MPV Absolute Neuts (auto) Neutrophils % Lymphocytes % Monocytes % Eosinophils % Basophils % Nucleated RBC % PTT (Actin FS) Sodium 138 Potassium 3.5 Chloride 107 Carbon Dioxide 22 Anion Gap 9 BUN 10.5 Creatinine 0.9 Est GFR (CKD-EPI)AfAm 104.24 Est GFR (CKD-EPI)NonAf 89.94 Random Glucose 83 Calcium 9.1 Total Bilirubin 0.6 AST 14 L ALT 15 Alkaline Phosphatase 73 Total Protein 6.8 Albumin 3.4 Active Medications Generic Name Dose Route Start Last Admin Trade Name Lazaro PRN Reason Stop Dose Admin Amlodipine Besylate 10 mg 06/16/19 10:00 Norvasc - PO DAILY [facility] Budesonide/Formoterol Fumarate 2 puff 06/15/19 10:00 06/16/19 11:25 Symbicort 160/4.5mcg - IH 2 puff BID GUANAKO Administration Enoxaparin Sodium 100 mg 06/16/19 10:00 06/16/19 11:25 Lovenox - SQ 100 mg BID GUANAKO Administration Lisinopril 20 mg 06/16/19 10:00 Prinivil PO DAILY@0800 [facility] Montelukast Sodium 10 mg 06/15/19 22:00 06/15/19 21:22 Singulair - PO 10 mg HS GUANAKO Administration ASSESSMENT/PLAN: 64 y/o/m with PMHx of HTN, COPD, Asthma, and Prostate Ca (s/p surgery and RT completed in 03/2019) presents with shortness of breath associated with chest pain. Pt. admitted for bilateral PE with L. Popliteal DVT. #Neuro - AAOx3, monitor #Pulmonology - Bilateral PE - Hx COPD, Asthma - Pulmonology consult appreciated - c/w Monteleukast - Switched to Lovenox - IR procedure for thrombectomy, likely tomorrow - CXR: no acute pathology noted - CTA with bilateral upper and lower lobe central PE, trace right pleural effusion - LE U/S showing left popliteal vein DVT #Cardiology - HTN - c/w Lisinopril and Norvasc - EKG appreciated: unchanged from prior EKG on this admission; shows NSR, incomplete RBBB?, QTc: 435 - Troponins Neg. x 2 - Cardiology consult (Dr. Davies) appreciated - ECHO - Dilated RV w/ mildly reduced RV fx and RVSP 50-60mmHg #Urology - Hx. of Prostate CA, s/p resection - c/w AC - no active process currently; s/p treatment #FEN - Encourage PO intake - monitor electrolytes and replete as needed - Na restricted Diet #Prophylaxis - Lovenox 100mg SQ BID, discontinued Heparin drip #Disposition - Continue ICU monitoring - Likely IR procedure for thrombectomy tomorrow Visit type - Emergency Visit Emergency Visit: Yes ED Registration Date: 06/14/19 Care time: The patient presented to the Emergency Department on the above date and was hospitalized for further evaluation of their emergent condition. - New Patient This patient is new to me today: Yes Date on this admission: 06/17/19 - Critical Care Critical Care patient: Yes Total Critical Care Time (in minutes): 36 Critical Care Statement: The care of this patient involved high complexity decision making to prevent further life threatening deterioration of the patient 's condition and/or to evaluate & treat vital organ system(s) failure or risk of failure. ATTENDING PHYSICIAN STATEMENT I saw and evaluated the patient. I reviewed the resident's note and discussed the case with the resident. I agree with the resident's findings and plan as documented. SUBJECTIVE: OBJECTIVE: ASSESSMENT AND PLAN:
[2019-06-16] MEDS: MONTELUKAST NA 10 MG TABLET PO SCH (21:20)
[2019-06-16] MEDS: LISINOPRIL 20 MG TABLET (FP) PO SCH (21:20)
[2019-06-17 07:36] LABS: BASO % 0.7 % (0-2.0); EOS % 7.1 % (0-4.5); HEMATOCRIT 40.8 % (35.4-49); LYMPH % 8.1 % (8-40); MCH 29.3 pg (25.7-33.7); MCHC 34.2 g/dl (32.0-35.9); MEAN CELL VOLUME 85.6 fl (80-96); MEAN PLT VOLUME 8.1 fl (7.5-11.1); MONO % 12.5 % (3.8-10.2); NEUT % 71.6 % (42.8-82.8); PLATELET COUNT 252 K/MM3 (134-434); RBC 4.77 M/mm3 (4.00-5.60)
[2019-06-17 07:44] LABS: INR 1.2 (0.83-1.09); PROTHROMBIN TIME (PATIENT) 14.2 SEC (9.7-13.0)
[2019-06-17 07:47] LABS: ACTIVATED PTT 42.6 SECONDS (25.2-36.5)
[2019-06-17 07:54] LABS: BLOOD UREA NITROGEN 12.5 mg/dL (7-18); CALCIUM 9.2 mg/dL (8.5-10.1); CREATININE 0.9 mg/dL (0.55-1.3); PHOSPHOROUS 3.7 mg/dL (2.5-4.9); POTASSIUM 4.1 mmol/L (3.5-5.1)
--- NOTE | 2019-06-17 08:18 | PN ---
Progress Note (short form) - Note Progress Note: PULM/CCM SUBJECTIVE: Pt seen and examined in the ICU. 24HR: -changed to full dose lovenox -cx pressure improved -hemodynamics stable -states slept well OBJECTIVE: Vital Signs Temp 98.6 F 06/16/19 17:00 Pulse 65 06/17/19 04:00 Resp 27 H 06/17/19 04:00 BP 151/80 06/17/19 04:00 Pulse Ox 96 06/16/19 21:00 Intake & Output 06/16/19 06/16/19 06/17/19 11:59 23:59 11:59 Intake Total 548 40 Output Total 1500 800 Balance -952 -760 Weight 96.615 kg Intake: IV 248 40 Heparin - 25,000 Unit In 248 40 Normal Saline - 495 ml @ 1,800 UNIT/HR 36 mls/hr IV TITR GUANAKO Rx#: [id number] Oral 300 Output: Urine 1500 800 Void 1500 800 Other: Voiding Method Urinal Toilet # Unmeasured Voids Void 1 Bowel Movement Yes No Height 5 ft 9 in Body Mass Index (BMI) 31.4 Gen: NAD at rest Heart: RRR, non-displaced PMI Lung: decreased breath sounds at the bases Abd: soft, nontender Ext: no edema CBC, BMP 06/17/19 06:55 06/17/19 06:55 INR, PTT INR 1.20 (0.83-1.09) H 06/17/19 06:55 Active Medications Amlodipine Besylate (Norvasc -) 10 mg PO DAILY [facility] Last Admin: 06/16/19 12:00 Dose: 10 mg Budesonide/Formoterol Fumarate (Symbicort 160/4.5mcg -) 2 puff IH BID [facility] Last Admin: 06/16/19 21:20 Dose: 2 puff Enoxaparin Sodium (Lovenox -) 100 mg SQ BID [facility] Last Admin: 06/16/19 21:19 Dose: 100 mg Lisinopril (Prinivil) 20 mg PO BID [facility] Last Admin: 06/16/19 21:20 Dose: Not Given Montelukast Sodium (Singulair -) 10 mg PO HS [facility] Last Admin: 06/16/19 21:20 Dose: 10 mg ASSESSMENT AND PLAN: Acute Pulmonary Emboli, provoked L Popliteal DVT Pulmonary HTN/Cor Pulmonale COPD/Asthma Prostate Ca - continue anticoagulation - for catheter directed thrombectomy/thrombolysis today - O2 to keep SpO2 >90% - ICU monitoring post procedure - NPO--> will start diet post procedure
--- NOTE | 2019-06-17 09:14 | PN ---
Progress Note, Physician Chief Complaint: No CP, SOB, dizziness TELE: NSR - Current Medication List Current Medications: Active Medications Amlodipine Besylate (Norvasc -) 10 mg PO DAILY [facility] Last Admin: 06/16/19 12:00 Dose: 10 mg Budesonide/Formoterol Fumarate (Symbicort 160/4.5mcg -) 2 puff IH BID [facility] Last Admin: 06/16/19 21:20 Dose: 2 puff Enoxaparin Sodium (Lovenox -) 100 mg SQ BID [facility] Last Admin: 06/16/19 21:19 Dose: 100 mg Lisinopril (Prinivil) 20 mg PO BID [facility] Last Admin: 06/16/19 21:20 Dose: Not Given Montelukast Sodium (Singulair -) 10 mg PO HS [facility] Last Admin: 06/16/19 21:20 Dose: 10 mg - Objective Vital Signs: Vital Signs Temperature 97.6 F 06/17/19 06:00 Pulse Rate 60 06/17/19 08:00 Respiratory Rate 22 H 06/17/19 09:00 Blood Pressure 150/84 06/17/19 08:00 O2 Sat by Pulse Oximetry (%) 96 06/17/19 09:00 Constitutional: Yes: No Distress, Calm Cardiovascular: Yes: Regular Rate and Rhythm Respiratory: Yes: CTA Bilaterally Gastrointestinal: Yes: Soft (NT) Edema: No Peripheral Pulses WNL: Yes Neurological: Yes: Alert, Oriented ...Motor Strength: WNL Labs: CBC, BMP 06/17/19 06:55 06/17/19 06:55 INR, PTT INR 1.20 (0.83-1.09) H 06/17/19 06:55 - ....Imaging EKG: Image Reviewed Assessment/Plan Assessment/Plan EKG: sinus, IRBBB,no ischemic changes lower ext venous dopplers: DVT L popliteal vein CTA chest: acute carlos upper and lower central PE, possible CT evidence of increased pulm arterial pressure, small R post basilar opacity infiltrate vs focal edema tele: sinus nadine Pulmonary embolism: submassive with RV dilatation and PHTN, hemodynamically stable with negative TnI -ICU monitoring -Case discussed with ICU attending (Dr. Traylor) and Interventional Radiology (Dr. Dow). As patient is hemodynamically stable since admission and at this time , no indication for emergent lysis. Patient would benefit from lysis prior to discharge to help prevent [employer] complications of this PE such as chronic PHTN and RV failure. -Plan is if for catheter guided lysis today by IR -Cont Lovenox. -Check BNP, prognostic marker HTN - cont home meds COPD - manage per primary
[2019-06-17] MEDS ORDERED: PT OWN MED DRAWER 7, Y5N ONE (09:44)
[2019-06-17] MEDS: ENOXAPARIN NA (PORCINE) 100 MG/1 ML DISP.SYRIN SQ SCH ×2 (09:45→21:35)
[2019-06-17] MEDS: LISINOPRIL 20 MG TABLET (FP) PO SCH ×2 (09:46→21:35)
[2019-06-17] MEDS: BUDESONIDE/FORMETEROL FUMARATE 160/4.5 mcg INHALER IH SCH ×2 (09:46→21:36)
[2019-06-17] MEDS: amLODIPine BESYLATE 10 MG TABLET (FP) PO SCH (09:46)
--- NOTE | 2019-06-17 10:23 | PN ---
Progress Note (short form) - Note Progress Note: pt in ICU Heparin gtt dc -- now on Lovenox sc full dose no bleeding episodes Vital Signs - 24 hr 06/16/19 06/16/19 06/16/19 13:00 15:00 17:00 Temperature 98.6 F Pulse Rate 79 80 88 Respiratory 32 H 25 H 18 Rate Blood Pressure 154/81 153/82 168/90 O2 Sat by Pulse Oximetry (%) 06/16/19 06/16/19 06/16/19 19:00 21:00 23:00 Temperature Pulse Rate 76 68 64 Respiratory 27 H 26 H 29 H Rate Blood Pressure 150/88 145/82 144/80 O2 Sat by Pulse 96 Oximetry (%) 06/17/19 06/17/19 06/17/19 00:00 02:00 04:00 Temperature Pulse Rate 89 70 65 Respiratory 20 28 H 27 H Rate Blood Pressure 146/88 143/84 151/80 O2 Sat by Pulse Oximetry (%) 06/17/19 06/17/19 06/17/19 06:00 08:00 09:00 Temperature 97.6 F Pulse Rate 70 60 Respiratory 24 H 22 H 22 H Rate Blood Pressure 159/90 150/84 O2 Sat by Pulse 96 Oximetry (%) 06/17/19 06/17/19 10:00 12:00 Temperature 98.8 F Pulse Rate 64 74 Respiratory 20 20 Rate Blood Pressure 143/87 147/87 O2 Sat by Pulse Oximetry (%) Current Medications Generic Name Dose Route Start Last Admin Trade Name Freq PRN Reason Stop Dose Admin Amlodipine Besylate 10 mg 06/16/19 10:00 06/17/19 09:46 Norvasc - PO 10 mg DAILY [facility] Administration Budesonide/Formoterol Fumarate 2 puff 06/15/19 10:00 06/17/19 09:46 Symbicort 160/4.5mcg - IH 2 puff BID GUANAKO Administration Enoxaparin Sodium 100 mg 06/16/19 10:00 06/17/19 09:45 Lovenox - SQ 100 mg BID GUANAKO Administration Lisinopril 20 mg 06/16/19 22:00 06/17/19 09:46 Prinivil PO 20 mg BID GUANAKO Administration Montelukast Sodium 10 mg 06/15/19 22:00 06/16/19 21:20 Singulair - PO 10 mg HS GUANAKO Administration Polyethylene Glycol 17 gm 06/17/19 11:30 Miralax (For Daily Use) - PO DAILY GUANAKO Laboratory Results - last 24 hr 06/15/19 06/17/19 06/17/19 18:22 06:55 06:55 WBC 5.0 RBC 4.77 Hgb 14.0 Hct 40.8 MCV 85.6 MCH 29.3 MCHC 34.2 RDW 14.0 Plt Count 252 MPV 8.1 Absolute Neuts (auto) 3.6 Neutrophils % 71.6 Lymphocytes % 8.1 D Monocytes % 12.5 H Eosinophils % 7.1 H Basophils % 0.7 Nucleated RBC % 0 PT with INR INR PTT (Actin FS) 44.7 H Sodium 141 Potassium 4.1 Chloride 107 Carbon Dioxide 28 Anion Gap 6 L BUN 12.5 Creatinine 0.9 Est GFR (CKD-EPI)AfAm 104.24 Est GFR (CKD-EPI)NonAf 89.94 Random Glucose 84 Calcium 9.2 Phosphorus 3.7 Magnesium 2.0 B-Natriuretic Peptide 75.8 Blood Type Antibody Screen 06/17/19 06/17/19 06/17/19 06:55 06:55 10:55 WBC RBC Hgb Hct MCV MCH MCHC RDW Plt Count MPV Absolute Neuts (auto) Neutrophils % Lymphocytes % Monocytes % Eosinophils % Basophils % Nucleated RBC % PT with INR 14.20 H INR 1.20 H PTT (Actin FS) 42.6 H Sodium Potassium Chloride Carbon Dioxide Anion Gap BUN Creatinine Est GFR (CKD-EPI)AfAm Est GFR (CKD-EPI)NonAf Random Glucose Calcium Phosphorus Magnesium B-Natriuretic Peptide Blood Type A POSITIVE A POSITIVE Antibody Screen Negative Lungs clear Abd-soft, obese, NT trace edema to left leg no calf tenderness PLAN on Lovenox sc thrombolysis today BP -- monitor continue with meds Problem List - Problems (1) Asthma Code(s): J45.909 - UNSPECIFIED ASTHMA, UNCOMPLICATED (2) COPD (chronic obstructive pulmonary disease) Code(s): J44.9 - CHRONIC OBSTRUCTIVE PULMONARY DISEASE, UNSPECIFIED (3) Chest pain Code(s): R07.9 - CHEST PAIN, UNSPECIFIED (4) HTN (hypertension) Code(s): I10 - ESSENTIAL (PRIMARY) HYPERTENSION (5) History of prostate cancer Code(s): Z85.46 - PERSONAL HISTORY OF MALIGNANT NEOPLASM OF PROSTATE (6) Pulmonary embolism, bilateral Code(s): I26.99 - OTHER PULMONARY EMBOLISM WITHOUT ACUTE COR PULMONALE (7) DVT (deep venous thrombosis) Code(s): I82.409 - ACUTE EMBOLISM AND THOMBOS UNSP DEEP VN UNSP LOWER EXTREMITY
[2019-06-17 11:35] LABS: N-TERMINAL BNP 75.8 pg/ml (5-125)
[2019-06-17] MEDS: POLYETHYLENE GLYCOL 3350 119 GM BTL PO SCH (13:56)
[2019-06-17] MEDS: MONTELUKAST NA 10 MG TABLET PO SCH (21:36)
[2019-06-18 07:36] LABS: HEMATOCRIT 40.1 % (35.4-49); HEMOGLOBIN 13.5 GM/dL (11.7-16.9); MCH 28.7 pg (25.7-33.7); MCHC 33.6 g/dl (32.0-35.9); MEAN CELL VOLUME 85.5 fl (80-96); MEAN PLT VOLUME 7.9 fl (7.5-11.1); PLATELET COUNT 271 K/MM3 (134-434); RBC 4.68 M/mm3 (4.00-5.60); RDW 13.8 % (11.9-15.9); WHITE BLOOD COUNT 4.7 K/mm3 (4.0-10.0)
[2019-06-18 07:49] LABS: BLOOD UREA NITROGEN 17.7 mg/dL (7-18); CALCIUM 9.2 mg/dL (8.5-10.1); MAGNESIUM 2.1 mg/dL (1.8-2.4); POTASSIUM 4.2 mmol/L (3.5-5.1)
--- NOTE | 2019-06-18 08:20 | PN ---
Progress Note (short form) - Note Progress Note: PULM/CCM SUBJECTIVE: Pt seen and examined in the ICU. 24HR: -IR procedure canceled, no acute events overnight OBJECTIVE: Vital Signs Temp 98.6 F 06/16/19 17:00 Pulse 65 06/17/19 04:00 Resp 27 H 06/17/19 04:00 BP 151/80 06/17/19 04:00 Pulse Ox 96 06/16/19 21:00 Intake & Output 06/16/19 06/16/19 06/17/19 11:59 23:59 11:59 Intake Total 548 40 Output Total 1500 800 Balance -952 -760 Weight 96.615 kg Intake: IV 248 40 Heparin - 25,000 Unit In 248 40 Normal Saline - 495 ml @ 1,800 UNIT/HR 36 mls/hr IV TITR GUANAKO Rx#: [id number] Oral 300 Output: Urine 1500 800 Void 1500 800 Other: Voiding Method Urinal Toilet # Unmeasured Voids Void 1 Bowel Movement Yes No Height 5 ft 9 in Body Mass Index (BMI) 31.4 Gen: NAD at rest Heart: RRR, non-displaced PMI Lung: decreased breath sounds at the bases Abd: soft, nontender Ext: no edema CBC, BMP 06/18/19 06:54 06/18/19 06:54 INR, PTT INR 1.20 (0.83-1.09) H 06/17/19 06:55 Active Medications Amlodipine Besylate (Norvasc -) 10 mg PO DAILY [facility] Last Admin: 06/17/19 09:46 Dose: 10 mg Budesonide/Formoterol Fumarate (Symbicort 160/4.5mcg -) 2 puff IH BID [facility] Last Admin: 06/17/19 21:36 Dose: 2 puff Enoxaparin Sodium (Lovenox -) 100 mg SQ BID [facility] Last Admin: 06/17/19 21:35 Dose: 100 mg Lisinopril (Prinivil) 20 mg PO BID [facility] Last Admin: 06/17/19 21:35 Dose: Not Given Montelukast Sodium (Singulair -) 10 mg PO HS [facility] Last Admin: 06/17/19 21:36 Dose: 10 mg Polyethylene Glycol (Miralax (For Daily Use) -) 17 gm PO DAILY [facility] Last Admin: 06/17/19 13:56 Dose: 17 grams ASSESSMENT AND PLAN: Acute Pulmonary Emboli, provoked L Popliteal DVT Pulmonary HTN/Cor Pulmonale COPD/Asthma Prostate Ca - continue anticoagulation with lovenox - for catheter directed thrombectomy/thrombolysis on Thursday - O2 to keep SpO2 >90% - ICU monitoring post procedure - cardiac diet - NPO midnight Thursday - OOB - bowel regimen, no straining given elevated [facility]SP [id number]
--- NOTE | 2019-06-18 08:55 | PN ---
Progress Note, Physician Chief Complaint: PEs History of Present Illness: no cp, sob, palp, syncope - Current Medication List Current Medications: Active Medications Amlodipine Besylate (Norvasc -) 10 mg PO DAILY [facility] Last Admin: 06/17/19 09:46 Dose: 10 mg Budesonide/Formoterol Fumarate (Symbicort 160/4.5mcg -) 2 puff IH BID [facility] Last Admin: 06/17/19 21:36 Dose: 2 puff Enoxaparin Sodium (Lovenox -) 100 mg SQ BID [facility] Last Admin: 06/17/19 21:35 Dose: 100 mg Lisinopril (Prinivil) 20 mg PO BID [facility] Last Admin: 06/17/19 21:35 Dose: Not Given Montelukast Sodium (Singulair -) 10 mg PO HS [facility] Last Admin: 06/17/19 21:36 Dose: 10 mg Polyethylene Glycol (Miralax (For Daily Use) -) 17 gm PO DAILY [facility] Last Admin: 06/17/19 13:56 Dose: 17 grams - Objective Vital Signs: Vital Signs Temperature 97.9 F 06/18/19 06:00 Pulse Rate 72 06/18/19 08:00 Respiratory Rate 18 06/18/19 08:00 Blood Pressure 149/91 06/18/19 08:00 O2 Sat by Pulse Oximetry (%) 97 06/17/19 21:00 Constitutional: Yes: Well Nourished, No Distress, Calm Cardiovascular: Yes: Regular Rate and Rhythm, S1, S2. No: Gallop, Murmur Respiratory: Yes: Regular, CTA Bilaterally. No: Accessory Muscle Use, Rales, Wheezes Extremities: No: Cold Edema: No Neurological: Yes: Alert, Oriented Psychiatric: No: Agitated Labs: CBC, BMP 06/18/19 06:54 06/18/19 06:54 INR, PTT INR 1.20 (0.83-1.09) H 06/17/19 06:55 Assessment/Plan EKG: sinus, IRBBB,no ischemic changes lower ext venous dopplers: DVT L popliteal vein CTA chest: acute carlos upper and lower central PE, possible CT evidence of increased pulm arterial pressure, small R post basilar opacity infiltrate vs focal edema Echo 06/07: nl LV/EF. RV tds--mildly dilated, mild hypo. mild TR. RVSP 50-60 tele: NSR, brief run AT Pulmonary embolism: submassive with RV dilatation and PHTN, hemodynamically stable with negative TnI. + DVT -ICU monitoring -timing of catheter-directed lysis as per crit care, IR -Cont Lovenox. -duration of AC per pulm, ? heme input HTN - hemodynamically stable - cont present plan COPD - manage per primary, pulm
[2019-06-18] MEDS ORDERED: PT OWN MED DRAWER 7, Y5N ONE (09:11)
[2019-06-18] MEDS: amLODIPine BESYLATE 10 MG TABLET (FP) PO SCH (09:13)
[2019-06-18] MEDS: LISINOPRIL 20 MG TABLET (FP) PO SCH ×2 (09:13→21:38)
[2019-06-18] MEDS: POLYETHYLENE GLYCOL 3350 119 GM BTL PO SCH (09:14)
[2019-06-18] MEDS: ENOXAPARIN NA (PORCINE) 100 MG/1 ML DISP.SYRIN SQ SCH ×2 (09:14→21:37)
[2019-06-18] MEDS: BUDESONIDE/FORMETEROL FUMARATE 160/4.5 mcg INHALER IH SCH ×2 (09:15→21:38)
--- NOTE | 2019-06-18 11:35 | PN ---
Progress Note (short form) - Note Progress Note: pt in ICU Lovenox sc full dose thrombolysis cancelled yesterday-- scheduled for Thursday no bleeding episodes Vital Signs - 24 hr 06/17/19 06/17/19 06/17/19 12:00 14:00 16:00 Temperature 98.5 F Pulse Rate 74 64 79 Respiratory 20 20 20 Rate Blood Pressure 147/87 131/77 139/84 O2 Sat by Pulse Oximetry (%) 06/17/19 06/17/19 06/17/19 18:00 20:00 21:00 Temperature 97.4 F L Pulse Rate 75 72 Respiratory 20 24 H Rate Blood Pressure 146/94 131/74 O2 Sat by Pulse 97 Oximetry (%) 06/17/19 06/18/19 06/18/19 22:00 00:00 01:50 Temperature Pulse Rate 74 66 60 Respiratory 29 H 27 H 25 H Rate Blood Pressure 143/83 142/79 146/74 O2 Sat by Pulse Oximetry (%) 06/18/19 06/18/19 06/18/19 04:00 06:00 08:00 Temperature 97.9 F Pulse Rate 59 L 71 72 Respiratory 28 H 22 H 18 Rate Blood Pressure 123/81 131/80 149/91 O2 Sat by Pulse Oximetry (%) 06/18/19 10:00 Temperature 98.4 F Pulse Rate 73 Respiratory 15 Rate Blood Pressure 168/95 O2 Sat by Pulse Oximetry (%) Current Medications Generic Name Dose Route Start Last Admin Trade Name Freq PRN Reason Stop Dose Admin Amlodipine Besylate 10 mg 06/16/19 10:00 06/18/19 09:13 Norvasc - PO 10 mg DAILY GUANAKO Administration Budesonide/Formoterol Fumarate 2 puff 06/15/19 10:00 06/18/19 09:15 Symbicort 160/4.5mcg - IH 2 puff BID GUANAKO Administration Enoxaparin Sodium 100 mg 06/16/19 10:00 06/18/19 09:14 Lovenox - SQ 100 mg BID GUANAKO Administration Lisinopril 20 mg 06/16/19 22:00 06/18/19 09:13 Prinivil PO 20 mg BID GUANAKO Administration Montelukast Sodium 10 mg 06/15/19 22:00 06/17/19 21:36 Singulair - PO 10 mg HS GUANAKO Administration Polyethylene Glycol 17 gm 06/17/19 11:30 06/18/19 09:14 Miralax (For Daily Use) - PO 17 grams DAILY GUANAKO Administration Laboratory Results - last 24 hr 06/17/19 06/17/19 06/18/19 06:55 10:55 06:54 WBC 4.7 RBC 4.68 Hgb 13.5 Hct 40.1 MCV 85.5 MCH 28.7 MCHC 33.6 RDW 13.8 Plt Count 271 MPV 7.9 Sodium Potassium Chloride Carbon Dioxide Anion Gap BUN Creatinine Est GFR (CKD-EPI)AfAm Est GFR (CKD-EPI)NonAf Random Glucose Calcium Phosphorus Magnesium B-Natriuretic Peptide 75.8 Blood Type A POSITIVE 06/18/19 06:54 WBC RBC Hgb Hct MCV MCH MCHC RDW Plt Count MPV Sodium 142 Potassium 4.2 Chloride 107 Carbon Dioxide 29 Anion Gap 6 L BUN 17.7 Creatinine 1.0 Est GFR (CKD-EPI)AfAm 91.78 Est GFR (CKD-EPI)NonAf 79.19 Random Glucose 85 Calcium 9.2 Phosphorus 4.0 Magnesium 2.1 B-Natriuretic Peptide Blood Type Lungs clear Abd-soft, obese, NT trace edema to left leg no calf tenderness PLAN on Lovenox sc thrombolysis on Thursday BP -- monitor continue with meds Problem List - Problems (1) Asthma Code(s): J45.909 - UNSPECIFIED ASTHMA, UNCOMPLICATED (2) COPD (chronic obstructive pulmonary disease) Code(s): J44.9 - CHRONIC OBSTRUCTIVE PULMONARY DISEASE, UNSPECIFIED (3) Chest pain Code(s): R07.9 - CHEST PAIN, UNSPECIFIED (4) HTN (hypertension) Code(s): I10 - ESSENTIAL (PRIMARY) HYPERTENSION (5) History of prostate cancer Code(s): Z85.46 - PERSONAL HISTORY OF MALIGNANT NEOPLASM OF PROSTATE (6) Pulmonary embolism, bilateral Code(s): I26.99 - OTHER PULMONARY EMBOLISM WITHOUT ACUTE COR PULMONALE (7) DVT (deep venous thrombosis) Code(s): I82.409 - ACUTE EMBOLISM AND THOMBOS UNSP DEEP VN UNSP LOWER EXTREMITY
[2019-06-18] MEDS: MONTELUKAST NA 10 MG TABLET PO SCH (21:38)
--- NOTE | 2019-06-19 07:58 | PN ---
Progress Note (short form) - Note Progress Note: PULM/CCM SUBJECTIVE: No complaints Pt seen and examined in the ICU. 24HR: -stable -remains in ICU as will be getting IR directed TPA on Thursday OBJECTIVE: Vital Signs Temp 98.6 F 06/16/19 17:00 Pulse 65 06/17/19 04:00 Resp 27 H 06/17/19 04:00 BP 151/80 06/17/19 04:00 Pulse Ox 96 06/16/19 21:00 Intake & Output 06/16/19 06/16/19 06/17/19 11:59 23:59 11:59 Intake Total 548 40 Output Total 1500 800 Balance -952 -760 Weight 96.615 kg Intake: IV 248 40 Heparin - 25,000 Unit In 248 40 Normal Saline - 495 ml @ 1,800 UNIT/HR 36 mls/hr IV TITR GUANAKO Rx#: [id number] Oral 300 Output: Urine 1500 800 Void 1500 800 Other: Voiding Method Urinal Toilet # Unmeasured Voids Void 1 Bowel Movement Yes No Height 5 ft 9 in Body Mass Index (BMI) 31.4 Gen: NAD at rest Heart: RRR, non-displaced PMI Lung: clear Abd: soft, nontender Ext: no edema Neuro: OOB, ambulatory CBC, BMP 06/18/19 06:54 06/18/19 06:54 Active Medications Amlodipine Besylate (Norvasc -) 10 mg PO DAILY [facility] Last Admin: 06/18/19 09:13 Dose: 10 mg Budesonide/Formoterol Fumarate (Symbicort 160/4.5mcg -) 2 puff IH BID [facility] Last Admin: 06/18/19 21:38 Dose: 2 puff Enoxaparin Sodium (Lovenox -) 100 mg SQ BID [facility] Last Admin: 06/18/19 21:37 Dose: 100 mg Lisinopril (Prinivil) 20 mg PO BID [facility] Last Admin: 06/18/19 21:38 Dose: 20 mg Montelukast Sodium (Singulair -) 10 mg PO HS [facility] Last Admin: 06/18/19 21:38 Dose: 10 mg Polyethylene Glycol (Miralax (For Daily Use) -) 17 gm PO DAILY [facility] Last Admin: 06/18/19 09:14 Dose: 17 grams ASSESSMENT AND PLAN: Acute Pulmonary Emboli, provoked L Popliteal DVT Pulmonary HTN/Cor Pulmonale COPD/Asthma Prostate Ca - continue anticoagulation with lovenox - for catheter directed thrombectomy/thrombolysis on Thursday - O2 to keep SpO2 >90% - ICU monitoring post procedure - cardiac diet - NPO midnight Thursday - OOB - bowel regimen, no straining given elevated RVSP [place] ACNP 1157
--- NOTE | 2019-06-19 08:14 | PN ---
Progress Note (short form) - Note Progress Note: pt in ICU Lovenox sc full dose thrombolysis -- scheduled for Thursday no bleeding episodes BP better Vital Signs - 24 hr 06/18/19 06/18/19 06/18/19 10:00 12:00 14:00 Temperature 98.4 F 98.6 F Pulse Rate 73 76 79 Respiratory 15 30 H 20 Rate Blood Pressure 168/95 128/84 127/79 O2 Sat by Pulse Oximetry (%) 06/18/19 06/18/19 06/18/19 16:00 18:00 20:00 Temperature 98.2 F Pulse Rate 80 75 65 Respiratory 20 18 20 Rate Blood Pressure 128/75 135/81 135/73 O2 Sat by Pulse Oximetry (%) 06/18/19 06/18/19 06/19/19 21:00 22:00 00:00 Temperature Pulse Rate 62 65 Respiratory 28 H 26 H Rate Blood Pressure 140/79 125/85 O2 Sat by Pulse 98 Oximetry (%) 06/19/19 06/19/19 06/19/19 02:00 04:00 06:00 Temperature 98.1 F Pulse Rate 71 55 L 59 L Respiratory 22 H 24 H 22 H Rate Blood Pressure 134/90 140/83 139/85 O2 Sat by Pulse Oximetry (%) 06/19/19 08:00 Temperature Pulse Rate 61 Respiratory 28 H Rate Blood Pressure 132/78 O2 Sat by Pulse Oximetry (%) Current Medications Generic Name Dose Route Start Last Admin Trade Name Freq PRN Reason Stop Dose Admin Amlodipine Besylate 10 mg 06/16/19 10:00 06/18/19 09:13 Norvasc - PO 10 mg DAILY GUANAKO Administration Budesonide/Formoterol Fumarate 2 puff 06/15/19 10:00 06/18/19 21:38 Symbicort 160/4.5mcg - IH 2 puff BID GUANAKO Administration Enoxaparin Sodium 100 mg 06/16/19 10:00 06/18/19 21:37 Lovenox - SQ 100 mg BID GUANAKO Administration Lisinopril 20 mg 06/16/19 22:00 06/18/19 21:38 Prinivil PO 20 mg BID GUANAKO Administration Montelukast Sodium 10 mg 06/15/19 22:00 06/18/19 21:38 Singulair - PO 10 mg HS GUANAKO Administration Polyethylene Glycol 17 gm 06/17/19 11:30 06/18/19 09:14 Miralax (For Daily Use) - PO 17 grams DAILY GUANAKO Administration [id number] Lungs clear Abd-soft, obese, NT trace edema to left leg no calf tenderness PLAN on Lovenox sc thrombolysis on Thursday BP -- monitor continue with meds Problem List - Problems (1) Asthma Code(s): J45.909 - UNSPECIFIED ASTHMA, UNCOMPLICATED (2) COPD (chronic obstructive pulmonary disease) Code(s): J44.9 - CHRONIC OBSTRUCTIVE PULMONARY DISEASE, UNSPECIFIED (3) Chest pain Code(s): R07.9 - CHEST PAIN, UNSPECIFIED (4) HTN (hypertension) Code(s): I10 - ESSENTIAL (PRIMARY) HYPERTENSION (5) History of prostate cancer Code(s): Z85.46 - PERSONAL HISTORY OF MALIGNANT NEOPLASM OF PROSTATE (6) Pulmonary embolism, bilateral Code(s): I26.99 - OTHER PULMONARY EMBOLISM WITHOUT ACUTE COR PULMONALE (7) DVT (deep venous thrombosis) Code(s): I82.409 - ACUTE EMBOLISM AND THOMBOS UNSP DEEP VN UNSP LOWER EXTREMITY
[2019-06-19] MEDS ORDERED: SENNOSIDES 8.6MG TABLET (FP) PO ONE (09:20)
--- NOTE | 2019-06-19 09:51 | PN ---
Progress Note, Physician Chief Complaint: sob History of Present Illness: no sob. no cp. no palp, presyncope - Current Medication List Current Medications: Active Medications Amlodipine Besylate (Norvasc -) 10 mg PO DAILY [facility] Last Admin: 06/18/19 09:13 Dose: 10 mg Budesonide/Formoterol Fumarate (Symbicort 160/4.5mcg -) 2 puff IH BID [facility] Last Admin: 06/18/19 21:38 Dose: 2 puff Enoxaparin Sodium (Lovenox -) 100 mg SQ BID [facility] Last Admin: 06/18/19 21:37 Dose: 100 mg Lisinopril (Prinivil) 20 mg PO BID [facility] Last Admin: 06/18/19 21:38 Dose: 20 mg Montelukast Sodium (Singulair -) 10 mg PO HS [facility] Last Admin: 06/18/19 21:38 Dose: 10 mg Polyethylene Glycol (Miralax (For Daily Use) -) 17 gm PO DAILY [facility] Last Admin: 06/18/19 09:14 Dose: 17 grams Senna (Senna -) 2 tab PO HS PRN PRN Reason: CONSTIPATION - Objective Vital Signs: Vital Signs Temperature 98.1 F 06/19/19 06:00 Pulse Rate 61 06/19/19 08:00 Respiratory Rate 28 H 06/19/19 08:00 Blood Pressure 132/78 06/19/19 08:00 O2 Sat by Pulse Oximetry (%) 98 06/18/19 21:00 Constitutional: Yes: Well Nourished, No Distress, Calm Cardiovascular: Yes: Regular Rate and Rhythm, S1, S2. No: Gallop, Murmur Respiratory: Yes: Regular, CTA Bilaterally. No: Accessory Muscle Use, Rales, Wheezes Extremities: No: Cold Edema: No Neurological: Yes: Alert, Oriented. No: Seizure Psychiatric: No: Agitated Labs: CBC, BMP 06/18/19 06:54 06/18/19 06:54 INR, PTT INR 1.20 (0.83-1.09) H 06/17/19 06:55 Assessment/Plan EKG: sinus, IRBBB,no ischemic changes lower ext venous dopplers: DVT L popliteal vein CTA chest: acute carlos upper and lower central PE, possible CT evidence of increased pulm arterial pressure, small R post basilar opacity infiltrate vs focal edema Echo 06/07: nl LV/EF. RV tds--mildly dilated, mild hypo. mild TR. RVSP 50-60 tele: NSR Pulmonary embolism: submassive with RV dilatation and PHTN, hemodynamically stable with negative TnI. + DVT -ICU monitoring -timing of catheter-directed lysis as per crit care, IR -Cont Lovenox. -duration of AC per pulm, ? heme input HTN - hemodynamically stable - cont present plan COPD - manage per primary, pulm
[2019-06-19] MEDS ORDERED: PT OWN MED DRAWER 7, Y5N ONE ×2 (09:52→21:40)
[2019-06-19] MEDS: ENOXAPARIN NA (PORCINE) 100 MG/1 ML DISP.SYRIN SQ SCH ×2 (09:56→21:45)
[2019-06-19] MEDS: POLYETHYLENE GLYCOL 3350 119 GM BTL PO SCH (09:57)
[2019-06-19] MEDS: LISINOPRIL 20 MG TABLET (FP) PO SCH ×2 (09:57→21:45)
[2019-06-19] MEDS: amLODIPine BESYLATE 10 MG TABLET (FP) PO SCH (10:00)
[2019-06-19] MEDS: BUDESONIDE/FORMETEROL FUMARATE 160/4.5 mcg INHALER IH SCH ×2 (10:01→21:46)
[2019-06-19] MEDS: MONTELUKAST NA 10 MG TABLET PO SCH (21:45)
[2019-06-20 08:19] LABS: HEMATOCRIT 42.9 % (35.4-49); MCH 28.1 pg (25.7-33.7); MCHC 32.5 g/dl (32.0-35.9); MEAN CELL VOLUME 86.4 fl (80-96); MEAN PLT VOLUME 7.9 fl (7.5-11.1); PLATELET COUNT 283 K/MM3 (134-434); RBC 4.97 M/mm3 (4.00-5.60); RDW 13.9 % (11.9-15.9); WHITE BLOOD COUNT 4.6 K/mm3 (4.0-10.0)
[2019-06-20 08:39] LABS: ALBUMIN 3.3 g/dl (3.4-5.0); BILIRUBIN,TOTAL 0.5 mg/dL (0.2-1); BLOOD UREA NITROGEN 15.4 mg/dL (7-18); CALCIUM 9.1 mg/dL (8.5-10.1); CREATININE 0.9 mg/dL (0.55-1.3); MAGNESIUM 2.3 mg/dL (1.8-2.4); PHOSPHOROUS 3.4 mg/dL (2.5-4.9); POTASSIUM 4.2 mmol/L (3.5-5.1); TOT PROT 6.6 g/dl (6.4-8.2)
[2019-06-20 09:12] LABS: INR 1.14 (0.83-1.09); PROTHROMBIN TIME (PATIENT) 13.5 SEC (9.7-13.0)
[2019-06-20 09:14] LABS: ACTIVATED PTT 43.5 SECONDS (25.2-36.5)
[2019-06-20] MEDS ORDERED: SENNOSIDES 8.6MG TABLET (FP) PO PRN (09:20)
--- NOTE | 2019-06-20 10:05 | PN ---
Progress Note (short form) - Note Progress Note: Pt seen/ examined today in icu chart is reviewed awake/ comfortable denies pain denies sob Scheduled for Thrombolysis today NPO Vital Signs Temp 98.1 F 06/20/19 06:00 Pulse 64 06/20/19 06:00 Resp 21 H 06/20/19 06:00 BP 133/76 06/20/19 08:00 Pulse Ox 99 06/20/19 07:53 Intake & Output 06/19/19 06/19/19 06/20/19 11:59 23:59 11:59 Intake Total 280 360 Balance 280 360 Weight 213 lb 13.574 oz Intake: Oral 280 360 Other: Voiding Method Toilet Toilet # Unmeasured Voids Void 2 2 1 Bowel Movement No Yes # Bowel Movements 1 Weight Measurement Method Built in [facility] Active Medications Amlodipine Besylate (Norvasc -) 10 mg PO DAILY [facility] Last Admin: 06/19/19 10:00 Dose: 10 mg Budesonide/Formoterol Fumarate (Symbicort 160/4.5mcg -) 2 puff IH BID [facility] Last Admin: 06/19/19 21:46 Dose: 2 puff Enoxaparin Sodium (Lovenox -) 100 mg SQ BID [facility] Last Admin: 06/19/19 21:45 Dose: 100 mg Lisinopril (Prinivil) 20 mg PO BID [facility] Last Admin: 06/19/19 21:45 Dose: 20 mg Montelukast Sodium (Singulair -) 10 mg PO HS [facility] Last Admin: 06/19/19 21:45 Dose: 10 mg Polyethylene Glycol (Miralax (For Daily Use) -) 17 gm PO DAILY [facility] Last Admin: 06/19/19 09:57 Dose: 17 grams Senna (Senna -) 2 tab PO HS PRN PRN Reason: CONSTIPATION CBC, BMP 06/20/19 08:02 06/20/19 08:02 Microbiology 06/14/19 21:00 Blood Culture - Final Blood - Peripheral Venous NO GROWTH AFTER 5 DAYS INCUBATION 06/14/19 21:00 Blood Culture - Final Blood - Peripheral Venous NO GROWTH AFTER 5 DAYS INCUBATION Physical Exam Awake/ comfortable Lungs clear Abd-soft, trace edema to left leg no calf tenderness AO x # PLAN Stable on Lovenox sc thrombolysis today Monitor in icu d/w RN also Will follow Problem List - Problems (1) Asthma Code(s): J45.909 - UNSPECIFIED ASTHMA, UNCOMPLICATED (2) COPD (chronic obstructive pulmonary disease) Code(s): J44.9 - CHRONIC OBSTRUCTIVE PULMONARY DISEASE, UNSPECIFIED (3) Chest pain Code(s): R07.9 - CHEST PAIN, UNSPECIFIED (4) HTN (hypertension) Code(s): I10 - ESSENTIAL (PRIMARY) HYPERTENSION (5) History of prostate cancer Code(s): Z85.46 - PERSONAL HISTORY OF MALIGNANT NEOPLASM OF PROSTATE (6) Pulmonary embolism, bilateral Code(s): I26.99 - OTHER PULMONARY EMBOLISM WITHOUT ACUTE COR PULMONALE (7) DVT (deep venous thrombosis) Code(s): I82.409 - ACUTE EMBOLISM AND THOMBOS UNSP DEEP VN UNSP LOWER EXTREMITY
--- NOTE | 2019-06-20 10:08 | PN ---
Progress Note, Physician Chief Complaint: sob History of Present Illness: no cp, sob no palp, presyncope - Current Medication List Current Medications: Active Medications Amlodipine Besylate (Norvasc -) 10 mg PO DAILY [facility] Last Admin: 06/19/19 10:00 Dose: 10 mg Budesonide/Formoterol Fumarate (Symbicort 160/4.5mcg -) 2 puff IH BID [facility] Last Admin: 06/19/19 21:46 Dose: 2 puff Enoxaparin Sodium (Lovenox -) 100 mg SQ BID [facility] Last Admin: 06/19/19 21:45 Dose: 100 mg Lisinopril (Prinivil) 20 mg PO BID [facility] Last Admin: 06/19/19 21:45 Dose: 20 mg Montelukast Sodium (Singulair -) 10 mg PO HS [facility] Last Admin: 06/19/19 21:45 Dose: 10 mg Polyethylene Glycol (Miralax (For Daily Use) -) 17 gm PO DAILY [facility] Last Admin: 06/19/19 09:57 Dose: 17 grams Senna (Senna -) 2 tab PO HS PRN PRN Reason: CONSTIPATION - Objective Vital Signs: Vital Signs Temperature 98.1 F 06/20/19 06:00 Pulse Rate 64 06/20/19 06:00 Respiratory Rate 21 H 06/20/19 06:00 Blood Pressure 133/76 06/20/19 08:00 O2 Sat by Pulse Oximetry (%) 99 06/20/19 07:53 Constitutional: Yes: Well Nourished, No Distress, Calm Cardiovascular: Yes: Regular Rate and Rhythm, S1, S2. No: Gallop, Murmur Respiratory: Yes: Regular, CTA Bilaterally. No: Accessory Muscle Use, Rales, Wheezes Extremities: No: Cold Edema: No Neurological: Yes: Alert, Oriented Psychiatric: No: Agitated Labs: CBC, BMP 06/20/19 08:02 06/20/19 08:02 INR, PTT INR 1.14 (0.83-1.09) H 06/20/19 08:02 Assessment/Plan EKG: sinus, IRBBB,no ischemic changes lower ext venous dopplers: DVT L popliteal vein CTA chest: acute carlos upper and lower central PE, possible CT evidence of increased pulm arterial pressure, small R post basilar opacity infiltrate vs focal edema Echo 06/07: nl LV/EF. RV tds--mildly dilated, mild hypo. mild TR. RVSP 50-60 tele: NSR Pulmonary embolism: submassive with RV dilatation and PHTN, hemodynamically stable with negative TnI. + DVT -ICU monitoring -timing of catheter-directed lysis as per crit care, IR -Cont Lovenox. -duration of AC per pulm, ? heme input HTN - hemodynamically stable - cont present plan COPD - manage per primary, pulm
--- NOTE | 2019-06-20 11:29 | PN ---
Teaching Attending Note Name of Resident: Carleen Damon ATTENDING PHYSICIAN STATEMENT I saw and evaluated the patient. I reviewed the resident's note and discussed the case with the resident. I agree with the resident's findings and plan as documented. SUBJECTIVE: Patient seen and examined in the ICU. Awake and alert. Denies CP or SOB. For IR catheter directed thrombectomy and tPA infusion today. Intake & Output 06/17/19 06/18/19 06/19/19 06/20/19 23:59 23:59 23:59 23:59 Intake Total 500 630 640 Output Total 400 Balance 100 630 640 Weight 213 lb 13.574 oz Last Vital Signs Temp Pulse Resp BP Pulse Ox 98.1 F 64 21 H 133/76 99 06/20/19 06:00 06/20/19 06:00 06/20/19 06:00 06/20/19 08:00 06/20/19 07:53 Active Medications Amlodipine Besylate (Norvasc -) 10 mg PO DAILY [facility] Last Admin: 06/19/19 10:00 Dose: 10 mg Budesonide/Formoterol Fumarate (Symbicort 160/4.5mcg -) 2 puff IH BID [facility] Last Admin: 06/19/19 21:46 Dose: 2 puff Enoxaparin Sodium (Lovenox -) 100 mg SQ BID [facility] Last Admin: 06/19/19 21:45 Dose: 100 mg Lisinopril (Prinivil) 20 mg PO BID [facility] Last Admin: 06/19/19 21:45 Dose: 20 mg Montelukast Sodium (Singulair -) 10 mg PO HS [facility] Last Admin: 06/19/19 21:45 Dose: 10 mg Polyethylene Glycol (Miralax (For Daily Use) -) 17 gm PO DAILY [facility] Last Admin: 06/19/19 09:57 Dose: 17 grams Senna (Senna -) 2 tab PO HS PRN PRN Reason: CONSTIPATION Gen: NAD at rest Heart: RRR Lung: clear Abd: soft, nontender Ext: no edema Neuro: non-focal Laboratory Results - last 24 hr 06/20/19 06/20/19 06/20/19 08:02 08:02 08:02 WBC 4.6 RBC 4.97 Hgb 14.0 Hct 42.9 MCV 86.4 MCH 28.1 MCHC 32.5 RDW 13.9 Plt Count 283 MPV 7.9 PT with INR 13.50 H INR 1.14 H PTT (Actin FS) 43.5 H Saline-Adjusted PTT PTT Patient/Cntrl Mix PTT Normal Plasma Pre Sodium 139 Potassium 4.2 Chloride 105 Carbon Dioxide 30 Anion Gap 4 L BUN 15.4 Creatinine 0.9 Est GFR (CKD-EPI)AfAm 104.24 Est GFR (CKD-EPI)NonAf 89.94 Random Glucose 84 Calcium 9.1 Phosphorus 3.4 Magnesium 2.3 Total Bilirubin 0.5 AST 70 H ALT 76 H Alkaline Phosphatase 73 Total Protein 6.6 Albumin 3.3 L Blood Type Antibody Screen 06/20/19 06/20/19 06/20/19 08:02 08:02 10:40 WBC RBC Hgb Hct MCV MCH MCHC RDW Plt Count MPV PT with INR INR PTT (Actin FS) 38.2 H Saline-Adjusted PTT Cancelled PTT Patient/Cntrl Mix Cancelled PTT Normal Plasma Pre Cancelled Sodium Potassium Chloride Carbon Dioxide Anion Gap BUN Creatinine Est GFR (CKD-EPI)AfAm Est GFR (CKD-EPI)NonAf Random Glucose Calcium Phosphorus Magnesium Total Bilirubin AST ALT Alkaline Phosphatase Total Protein Albumin Blood Type A POSITIVE Antibody Screen Negative ASSESSMENT AND PLAN: Acute Pulmonary Emboli, provoked L Popliteal DVT Pulmonary HTN/Cor Pulmonale COPD/Asthma Prostate Ca - continue anticoagulation with lovenox - for catheter directed thrombectomy/thrombolysis by IR today - Supplemental O2 to keep SpO2 >90% - ICU monitoring post procedure Dr Hendrickson
--- NOTE | 2019-06-20 13:45 | PN ---
Physical Exam: SUBJECTIVE: Patient seen and examined. Denies any chest pain, shortness of breath, difficulty breathing, pain with breathing, calf pain. Planned to go for IR procedure today. OBJECTIVE: Vital Signs Period Temp Pulse Resp BP Sys/Barker Pulse Ox Last 24 Hr 97.9 F-98.3 F 61-86 16-30 118-158/68-89 97-99 GENERAL: The patient is awake, alert, and fully oriented, in no acute distress. HEAD: Normal with no signs of trauma. EYES: PERRL, EOMI, no scleral icterus ENT: MMM NECK: Trachea midline, supple LUNGS: Breath sounds equal, clear to auscultation bilaterally, no wheezes, no crackles, no accessory muscle use. HEART: Regular rate and rhythm, S1, S2 without murmur, rub or gallop. ABDOMEN: Soft, nontender, nondistended, normoactive bowel sounds EXTREMITIES: 2+ pulses, warm, well-perfused, no edema. NEUROLOGICAL: Cranial nerves II through XII grossly intact. Normal speech, gait not observed. PSYCH: Normal mood, normal affect. SKIN: Warm, dry Laboratory Results - last 24 hr 06/20/19 06/20/19 06/20/19 08:02 08:02 08:02 WBC 4.6 RBC 4.97 Hgb 14.0 Hct 42.9 MCV 86.4 MCH 28.1 MCHC 32.5 RDW 13.9 Plt Count 283 MPV 7.9 PT with INR 13.50 H INR 1.14 H PTT (Actin FS) 43.5 H Saline-Adjusted PTT PTT Patient/Cntrl Mix PTT Normal Plasma Pre Sodium 139 Potassium 4.2 Chloride 105 Carbon Dioxide 30 Anion Gap 4 L BUN 15.4 Creatinine 0.9 Est GFR (CKD-EPI)AfAm 104.24 Est GFR (CKD-EPI)NonAf 89.94 Random Glucose 84 Calcium 9.1 Phosphorus 3.4 Magnesium 2.3 Total Bilirubin 0.5 AST 70 H ALT 76 H Alkaline Phosphatase 73 Total Protein 6.6 Albumin 3.3 L Blood Type Antibody Screen 06/20/19 06/20/19 06/20/19 08:02 08:02 10:40 WBC RBC Hgb Hct MCV MCH MCHC RDW Plt Count MPV PT with INR INR PTT (Actin FS) 38.2 H Saline-Adjusted PTT Cancelled PTT Patient/Cntrl Mix Cancelled PTT Normal Plasma Pre Cancelled Sodium Potassium Chloride Carbon Dioxide Anion Gap BUN Creatinine Est GFR (CKD-EPI)AfAm Est GFR (CKD-EPI)NonAf Random Glucose Calcium Phosphorus Magnesium Total Bilirubin AST ALT Alkaline Phosphatase Total Protein Albumin Blood Type A POSITIVE Antibody Screen Negative Active Medications Generic Name Dose Route Start Last Admin Trade Name Freq PRN Reason Stop Dose Admin Amlodipine Besylate 10 mg 06/16/19 10:00 06/19/19 10:00 Norvasc - PO 10 mg DAILY [facility] Administration Budesonide/Formoterol Fumarate 2 puff 06/15/19 10:00 06/19/19 21:46 Symbicort 160/4.5mcg - IH 2 puff BID [facility] Administration Enoxaparin Sodium 100 mg 06/16/19 10:00 06/19/19 21:45 Lovenox - SQ 100 mg BID [facility] Administration Lisinopril 20 mg 06/16/19 22:00 06/19/19 21:45 Prinivil PO 20 mg BID [facility] Administration Montelukast Sodium 10 mg 06/15/19 22:00 06/19/19 21:45 Singulair - PO 10 mg HS [facility] Administration Polyethylene Glycol 17 gm 06/17/19 11:30 06/19/19 09:57 Miralax (For Daily Use) - PO 17 grams DAILY [facility] Administration Senna 2 tab 06/20/19 09:20 Senna - PO HS PRN CONSTIPATION ASSESSMENT/PLAN: 64 y/o/m with PMHx of HTN, COPD, Asthma, and Prostate Ca (s/p surgery and RT completed in 03/2019) presents with shortness of breath associated with chest pain. Pt. admitted for bilateral PE with L. Popliteal DVT. #Neuro - AAOx3, monitor #Pulmonology - Bilateral PE - Hx COPD, Asthma - c/w Monteleukast - Lovenox - IR procedure for thrombectomy - CTA with bilateral upper and lower lobe central PE - LE U/S showing left popliteal vein DVT #Cardiology - HTN - c/w Lisinopril and Norvasc - EKG appreciated: unchanged from prior EKG on this admission; shows NSR, incomplete RBBB?, QTc: 435 - Troponins negative - Cardiology consult appreciated - ECHO - Dilated RV w/ mildly reduced RV fx and RVSP 50-60mmHg #Urology - Hx. of Prostate CA, s/p resection - c/w AC - no active process currently; s/p treatment #FEN - Encourage PO intake - monitor electrolytes and replete as needed - Na restricted Diet #Prophylaxis - Lovenox 100mg SQ BID #Disposition - Continue ICU monitoring - IR for thrombectomy Visit type - Emergency Visit Emergency Visit: Yes ED Registration Date: 06/14/19 Care time: The patient presented to the Emergency Department on the above date and was hospitalized for further evaluation of their emergent condition. - New Patient This patient is new to me today: No - Critical Care Critical Care patient: Yes Total Critical Care Time (in minutes): 36 Critical Care Statement: The care of this patient involved high complexity decision making to prevent further life threatening deterioration of the patient 's condition and/or to evaluate & treat vital organ system(s) failure or risk of failure. ATTENDING PHYSICIAN STATEMENT I saw and evaluated the patient. I reviewed the resident's note and discussed the case with the resident. I agree with the resident's findings and plan as documented. SUBJECTIVE: OBJECTIVE: ASSESSMENT AND PLAN:
--- NOTE | 2019-06-20 16:02 | ECHO ---
Name: ANTONETTE FERNANDEZ Exam:Adult Echocardiogram Study Date: 06/20/2019 12:22 PM Age: 64 yrs Reason For Study: LV Function Height: 69 in Weight: 213 lb BSA: 2.1 m2 MMode/2D Measurements & Calculations IVSd: 1.5 cm Ao root diam: 3.2 cm LVIDd: 4.5 cm LA dimension: 2.5 cm LVIDs: 2.9 cm LVPWd: 1.3 cm EDV(Teich): 90.7 ml LVOT diam: 2.0 cm ESV(Teich): 31.7 ml LAV (MOD-bp): 43.8 ml Doppler Measurements & Calculations MV E max benjamín: 49.0 cm/sec Ao V2 max: 157.5 cm/sec MV A max benjamín: 62.6 cm/sec Ao max P.9 mmHg MV E/A: 0.78 MV dec time: 0.35 sec SHAHIDA(V,D): 2.6 cm2 LV V1 max P.8 mmHg TR max benjamín: 256.1 cm/sec LV V1 max: 130.5 cm/sec TR max P.3 mmHg PA V2 max: 114.0 cm/sec Med Peak E' Benjamín: 5.1 cm/sec PA max P.2 mmHg Med E/e': 9.6 Lat Peak E' Benjamín: 10.7 cm/sec Lat E/e': 4.6 PI Vmax: 94.3 cm/sec Procedure A complete two-dimensional transthoracic echocardiogram was performed (2D, M-mode, Doppler and color flow Doppler). Left Ventricle The left ventricle is normal in size. There is moderate concentric left ventricular hypertrophy. Left ventricular systolic function is normal. Ejection Fraction = 60-65%. Grade I diastolic dysfunction, ( abnormal relaxation pattern). Ratio E/E'= 10. No regional wall motion abnormalities noted. Right Ventricle The right ventricle is normal size. The right ventricular systolic function is normal. Atria The left atrial size is normal. Right atrial size is normal. Mitral Valve The mitral valve is normal in structure and function. There is mild mitral regurgitation. Tricuspid Valve The tricuspid valve is normal in structure and function. There is mild tricuspid regurgitation. Pulmo nary artery systolic pressure is at least 31 mmHg if RA pressure is assumed 3 mmHg. Aortic Valve There is mild aortic sclerosis.;. No aortic regurgitation is present. Pulmonic Valve The pulmonic valve is not well visualized. Great Vessels The aortic root is normal size. Pericardium/Pleura There is no pericardial effusion. Interpretation Summary The left ventricle is normal in size. There is moderate concentric left ventricular hypertrophy. Left ventricular systolic function is normal. No regional wall motion abnormalities noted. Ejection Fraction = 60-65%. Grade I diastolic dysfunction, (abnormal relaxation pattern). Ratio E/E'= 10 The right ventricular systolic function is normal. The left atrial size is normal. Right atrial size is normal. There is mild mitral regurgitation. There is mild tricuspid regurgitation. Pulmonary artery systolic pressure is at least 31 mmHg if RA pressure is assumed 3 mmHg There is mild aortic sclerosis. There is no pericardial effusion. Jarvis Allen MD 06/20/2019 04:01 PM
[2019-06-20] MEDS: POLYETHYLENE GLYCOL 3350 119 GM BTL PO SCH ×2 (17:22→17:30)
[2019-06-20] MEDS: amLODIPine BESYLATE 10 MG TABLET (FP) PO SCH ×2 (17:22→17:29)
[2019-06-20] MEDS: ENOXAPARIN NA (PORCINE) 100 MG/1 ML DISP.SYRIN SQ SCH ×2 (17:23→17:29)
[2019-06-20] MEDS: LISINOPRIL 20 MG TABLET (FP) PO SCH ×2 (17:23→22:46)
[2019-06-20] MEDS: BUDESONIDE/FORMETEROL FUMARATE 160/4.5 mcg INHALER IH SCH ×2 (17:23→22:44)
[2019-06-20] MEDS ORDERED: PT OWN MED DRAWER 7, Y5N ONE ×2 (17:26→22:35)
[2019-06-20] MEDS: MONTELUKAST NA 10 MG TABLET PO SCH (22:46)
[2019-06-21] MEDS: ENOXAPARIN NA (PORCINE) 100 MG/1 ML DISP.SYRIN SQ SCH ×2 (00:28→09:28)
[2019-06-21 06:25] LABS: HEMATOCRIT 39.8 % (35.4-49); HEMOGLOBIN 13.4 GM/dL (11.7-16.9); MCH 28.8 pg (25.7-33.7); MCHC 33.7 g/dl (32.0-35.9); MEAN CELL VOLUME 85.3 fl (80-96); MEAN PLT VOLUME 7.7 fl (7.5-11.1); PLATELET COUNT 308 K/MM3 (134-434); RBC 4.67 M/mm3 (4.00-5.60); RDW 14.3 % (11.9-15.9); WHITE BLOOD COUNT 4.1 K/mm3 (4.0-10.0)
[2019-06-21 06:59] LABS: ALBUMIN 3.3 g/dl (3.4-5.0); BILIRUBIN,TOTAL 0.5 mg/dL (0.2-1); CALCIUM 9.2 mg/dL (8.5-10.1); CREATININE 0.9 mg/dL (0.55-1.3); POTASSIUM 4.1 mmol/L (3.5-5.1); TOT PROT 6.4 g/dl (6.4-8.2)
--- NOTE | 2019-06-21 07:48 | PN ---
Physical Exam: SUBJECTIVE: Patient seen and examined. Denies any chest pain, shortness of breath, difficulty breathing, pain with breathing, calf pain. Patient did not go for thrombectomy as his cardiac echo showed normal RV size and function. OBJECTIVE: Vital Signs Period Temp Pulse Resp BP Sys/Barker Pulse Ox Last 24 Hr 98 F-98.8 F 60-88 13-25 115-158/72-85 97-99 GENERAL: The patient is awake, alert, and fully oriented, in no acute distress. HEAD: Normal with no signs of trauma. EYES: EOMI, no scleral icterus ENT: Moist mucous membranes NECK: Trachea midline, supple LUNGS: Breath sounds equal, clear to auscultation bilaterally, no wheezes, no crackles, no accessory muscle use. HEART: Regular rate and rhythm, S1, S2 without murmur, rub or gallop. ABDOMEN: Soft, nontender, nondistended, normoactive bowel sounds EXTREMITIES: 2+ pulses, warm, well-perfused, no edema. NEUROLOGICAL: Normal speech, gait not observed. PSYCH: Normal mood, normal affect. SKIN: Warm, dry Laboratory Results - last 24 hr 06/20/19 06/20/19 06/20/19 08:02 08:02 08:02 WBC 4.6 RBC 4.97 Hgb 14.0 Hct 42.9 MCV 86.4 MCH 28.1 MCHC 32.5 RDW 13.9 Plt Count 283 MPV 7.9 PT with INR 13.50 H INR 1.14 H PTT (Actin FS) 43.5 H Saline-Adjusted PTT PTT Patient/Cntrl Mix PTT Normal Plasma Pre Sodium 139 Potassium 4.2 Chloride 105 Carbon Dioxide 30 Anion Gap 4 L BUN 15.4 Creatinine 0.9 Est GFR (CKD-EPI)AfAm 104.24 Est GFR (CKD-EPI)NonAf 89.94 Random Glucose 84 Calcium 9.1 Phosphorus 3.4 Magnesium 2.3 Total Bilirubin 0.5 AST 70 H ALT 76 H Alkaline Phosphatase 73 Total Protein 6.6 Albumin 3.3 L Blood Type Antibody Screen 06/20/19 06/20/19 06/20/19 08:02 08:02 10:40 WBC RBC Hgb Hct MCV MCH MCHC RDW Plt Count MPV PT with INR INR PTT (Actin FS) 38.2 H Saline-Adjusted PTT Cancelled PTT Patient/Cntrl Mix Cancelled PTT Normal Plasma Pre Cancelled Sodium Potassium Chloride Carbon Dioxide Anion Gap BUN Creatinine Est GFR (CKD-EPI)AfAm Est GFR (CKD-EPI)NonAf Random Glucose Calcium Phosphorus Magnesium Total Bilirubin AST ALT Alkaline Phosphatase Total Protein Albumin Blood Type A POSITIVE Antibody Screen Negative 06/21/19 06/21/19 05:50 05:50 WBC 4.1 RBC 4.67 Hgb 13.4 Hct 39.8 MCV 85.3 MCH 28.8 MCHC 33.7 RDW 14.3 Plt Count 308 MPV 7.7 PT with INR INR PTT (Actin FS) Saline-Adjusted PTT PTT Patient/Cntrl Mix PTT Normal Plasma Pre Sodium 141 Potassium 4.1 Chloride 105 Carbon Dioxide 29 Anion Gap 6 L BUN 16.0 Creatinine 0.9 Est GFR (CKD-EPI)AfAm 104.24 Est GFR (CKD-EPI)NonAf 89.94 Random Glucose 85 Calcium 9.2 Phosphorus Magnesium Total Bilirubin 0.5 AST 91 H ALT 105 H Alkaline Phosphatase 70 Total Protein 6.4 Albumin 3.3 L Blood Type Antibody Screen Active Medications Generic Name Dose Route Start Last Admin Trade Name Freq PRN Reason Stop Dose Admin Amlodipine Besylate 10 mg 06/16/19 10:00 06/20/19 17:29 Norvasc - PO 10 mg DAILY GUANAKO Administration Budesonide/Formoterol Fumarate 2 puff 06/15/19 10:00 06/20/19 22:44 Symbicort 160/4.5mcg - IH 2 puff BID GUANAKO Administration Enoxaparin Sodium 100 mg 06/16/19 10:00 06/21/19 00:28 Lovenox - SQ 100 mg BID GUANAKO Administration Lisinopril 20 mg 06/16/19 22:00 06/20/19 22:46 Prinivil PO 20 mg BID GUANAKO Administration Montelukast Sodium 10 mg 06/15/19 22:00 06/20/19 22:46 Singulair - PO 10 mg HS GUANAKO Administration Polyethylene Glycol 17 gm 06/17/19 11:30 06/20/19 17:30 Miralax (For Daily Use) - PO 17 grams DAILY GUANAKO Administration Senna 2 tab 06/20/19 09:20 06/20/19 22:46 Senna - PO 2 tab HS PRN Administration CONSTIPATION ASSESSMENT/PLAN: 64 y/o/m with PMHx of HTN, COPD, Asthma, and Prostate Ca (s/p surgery and RT completed in 03/2019) presents with shortness of breath associated with chest pain. Pt. admitted for bilateral PE with L. Popliteal DVT. #Neuro - AAOx3, monitor #Pulmonology - Bilateral PE on admission - Hx COPD, Asthma - c/w Monteleukast - Lovenox - repeat ECHO shows normal RV size and function, EF 60-65%. No longer needs IR thrombectomy - CTA with bilateral upper and lower lobe central PE on admission #Cardiology - HTN - c/w Lisinopril and Norvasc - EKG appreciated: unchanged from prior EKG on this admission; shows NSR, incomplete RBBB?, QTc: 435 - Troponins negative - Cardiology consult appreciated - ECHO 06/15 - Dilated RV w/ mildly reduced RV fx and RVSP 50-60mmHg - Repeat ECHO shows normal RV function and size. EF at 60-65%. #Urology - Hx. of Prostate CA, s/p resection - c/w AC - no active process currently; s/p treatment #FEN - Encourage PO intake - monitor electrolytes and replete as needed - Na restricted Diet #Prophylaxis - Lovenox 100mg SQ BID #Disposition - Stable discharge as per primary team. - Will be started on Eliquis and will need Heme follow up outpatient as per primary team. Visit type - Emergency Visit Emergency Visit: Yes ED Registration Date: 06/14/19 Care time: The patient presented to the Emergency Department on the above date and was hospitalized for further evaluation of their emergent condition. - New Patient This patient is new to me today: No - Critical Care Critical Care patient: Yes Total Critical Care Time (in minutes): 36 Critical Care Statement: The care of this patient involved high complexity decision making to prevent further life threatening deterioration of the patient 's condition and/or to evaluate & treat vital organ system(s) failure or risk of failure. ATTENDING PHYSICIAN STATEMENT I saw and evaluated the patient. I reviewed the resident's note and discussed the case with the resident. I agree with the resident's findings and plan as documented. SUBJECTIVE: OBJECTIVE: ASSESSMENT AND PLAN:
[2019-06-21] MEDS ORDERED: PT OWN MED DRAWER 7, Y5N ONE (09:21)
[2019-06-21] MEDS: POLYETHYLENE GLYCOL 3350 119 GM BTL PO SCH (09:26)
[2019-06-21] MEDS: amLODIPine BESYLATE 10 MG TABLET (FP) PO SCH (09:26)
[2019-06-21] MEDS: LISINOPRIL 20 MG TABLET (FP) PO SCH (09:27)
[2019-06-21] MEDS: BUDESONIDE/FORMETEROL FUMARATE 160/4.5 mcg INHALER IH SCH (09:27)
--- NOTE | 2019-06-21 11:06 | PN ---
Progress Note (short form) - Note Progress Note: s: no chest pain, palps, dizziness, dyspnea Current Medications Amlodipine Besylate (Norvasc -) 10 mg PO DAILY [facility] Last Admin: 06/21/19 09:26 Dose: 10 mg Budesonide/Formoterol Fumarate (Symbicort 160/4.5mcg -) 2 puff IH BID [facility] Last Admin: 06/21/19 09:27 Dose: 2 puff Enoxaparin Sodium (Lovenox -) 100 mg SQ BID [facility] Last Admin: 06/21/19 09:28 Dose: 100 mg Lisinopril (Prinivil) 20 mg PO BID [facility] Last Admin: 06/21/19 09:27 Dose: 20 mg Montelukast Sodium (Singulair -) 10 mg PO HS [facility] Last Admin: 06/20/19 22:46 Dose: 10 mg Polyethylene Glycol (Miralax (For Daily Use) -) 17 gm PO DAILY [facility] Last Admin: 06/21/19 09:26 Dose: 17 grams Senna (Senna -) 2 tab PO HS PRN PRN Reason: CONSTIPATION Last Admin: 06/20/19 22:46 Dose: 2 tab Vital Signs Period Temp Pulse Resp BP Sys/Barker Pulse Ox Last 24 Hr 98 F-98.8 F 60-88 13-25 115-158/72-85 97-99 Constitutional: Yes: Well Nourished, No Distress, Calm Cardiovascular: Yes: Regular Rate and Rhythm, S1, S2. No: Gallop, Murmur Respiratory: Yes: Regular, CTA Bilaterally. No: Accessory Muscle Use, Rales, Wheezes Extremities: No: Cold Edema: No Neurological: Yes: Alert, Oriented Psychiatric: No: Agitated Assessment/Plan EKG: sinus, IRBBB,no ischemic changes lower ext venous dopplers: DVT L popliteal vein CTA chest: acute carlos upper and lower central PE, possible CT evidence of increased pulm arterial pressure, small R post basilar opacity infiltrate vs focal edema Echo 06/07: nl LV/EF. RV tds--mildly dilated, mild hypo. mild TR. RVSP 50-60 echo 06/20/19 nl LV function, mod conc LVH, grade I diastoilc dysfunctino, RV nl function, nl RA size, PASP at least 31 mmHg tele: NSR Pulmonary embolism: submassive with RV dilatation and PHTN, hemodynamically stable with negative TnI. + DVT -ICU monitoring -timing of catheter-directed lysis as per crit care, IR - deferred for now as repeat echo showed nl RV function and improved pulm pressures -Cont Lovenox. -duration of AC per pulm, ? heme input HTN - hemodynamically stable - cont present plan COPD - manage per primary, pulm
--- NOTE | 2019-06-21 11:23 | EKG ---
Test Reason : Blood Pressure : / mmHG Vent. Rate : 067 BPM Atrial Rate : 067 BPM P-R Int : 148 ms QRS Dur : 114 ms QT Int : 404 ms P-R-T Axes : 046 011 035 degrees QTc Int : 426 ms NORMAL SINUS RHYTHM NORMAL ECG Confirmed by MD PIPER GREGORY ([id number]) on 06/21/2019 11:23:20 AM Referred By: Jno GREENE Confirmed By:BRUCE PIPER MD
--- NOTE | 2019-06-21 11:45 | DS ---
Physical Examination Vital Signs: Vital Signs Temperature 98.5 F 06/21/19 06:00 Pulse Rate 66 06/21/19 06:00 Respiratory Rate 16 06/21/19 06:00 Blood Pressure 131/77 06/21/19 06:00 O2 Sat by Pulse Oximetry (%) 99 06/21/19 08:24 Constitutional: Yes: No Distress, Calm Cardiovascular: Yes: Regular Rate and Rhythm Respiratory: Yes: CTA Bilaterally Gastrointestinal: Yes: Normal Bowel Sounds, Soft. No: Tenderness Edema: No Neurological: Yes: Alert, Oriented Labs: CBC, BMP 06/21/19 05:50 06/21/19 05:50 Discharge Summary Problems reviewed: Yes Reason For Visit: BILATERAL PULMONARY EMBOLISM Current Active Problems Asthma (Acute) COPD (chronic obstructive pulmonary disease) (Acute) Chest pain (Acute) DVT (deep venous thrombosis) (Acute) DVT of axillary vein, acute left (Acute) HTN (hypertension) (Acute) History of prostate cancer (Acute) Pulmonary embolism, bilateral (Acute) Hospital Course: Admitted for chest pain- found to have B/L PE and DVT left leg was admitted in ICU as echo showed RV strain Evaluated by Pulmonary and Cardiology Pt was placed on Heparin drip and changed to Lovenox sc Plan was to IR guided TPA - but repeat Echo done yesterday showed recovered RV , no further RV strain , pulmonary pressures decreased. Therefore Thrombolysis cancelled Pt has no symptoms Provoked PE and DVT due to long distance travel , but pt had active prostate CA - may need anticoagulation residential Advised to consult with hematology as outpt Stable for dc on PO eliquis Condition: Stable - Instructions Diet, Activity, Other Instructions: Pt was admitted in [facility] from 06/14 to 06/21 He may return to work on 06/30. Referrals: Damir Abraham MD [Primary Care Provider] - Disposition: HOME - Home Medications Comprehensive Discharge Medication List: Ambulatory Orders Amlodipine Besylate/Benazepril [Lotrel 10-20 mg Capsule] 1 cap PO HS 01/18/19 Budesonide/Formeterol Fumarate [SYMBICORT 160/4.5mcg -] 1 inh PO DAILY 01/18/19 Diphenhydramine [Benadryl -] 50 mg PO ASDIR 01/18/19 Montelukast Sodium [Singulair] 10 mg PO HS 01/18/19
[2019-06-21 12:14] VITALS: TEMP 98
[2019-06-21 12:15] VITALS: BP 148/92; PULSE 64
--- NOTE | 2019-06-21 12:40 | PN ---
Teaching Attending Note Name of Resident: Carleen Damon ATTENDING PHYSICIAN STATEMENT I saw and evaluated the patient. I reviewed the resident's note and discussed the case with the resident. I agree with the resident's findings and plan as documented. SUBJECTIVE: Patient seen and examined in the ICU. Awake and alert. Denies CP or SOB. Intake & Output 06/18/19 06/19/19 06/20/19 06/21/19 23:59 23:59 23:59 23:59 Intake Total 630 640 770 260 Balance 630 640 770 260 Weight 213 lb 13.574 oz Last Vital Signs Temp Pulse Resp BP Pulse Ox 98 F 64 18 148/92 99 06/21/19 12:15 06/21/19 12:15 06/21/19 12:15 06/21/19 12:15 06/21/19 08:24 Active Medications Amlodipine Besylate (Norvasc -) 10 mg PO DAILY [facility] Last Admin: 06/21/19 09:26 Dose: 10 mg Budesonide/Formoterol Fumarate (Symbicort 160/4.5mcg -) 2 puff IH BID [facility] Last Admin: 06/21/19 09:27 Dose: 2 puff Enoxaparin Sodium (Lovenox -) 100 mg SQ BID [facility] Last Admin: 06/21/19 09:28 Dose: 100 mg Lisinopril (Prinivil) 20 mg PO BID [facility] Last Admin: 06/21/19 09:27 Dose: 20 mg Montelukast Sodium (Singulair -) 10 mg PO HS [facility] Last Admin: 06/20/19 22:46 Dose: 10 mg Polyethylene Glycol (Miralax (For Daily Use) -) 17 gm PO DAILY [facility] Last Admin: 06/21/19 09:26 Dose: 17 grams Senna (Senna -) 2 tab PO HS PRN PRN Reason: CONSTIPATION Last Admin: 06/20/19 22:46 Dose: 2 tab Gen: NAD at rest Heart: RRR Lung: clear Abd: soft, nontender Ext: no edema Neuro: non-focal Laboratory Results - last 24 hr 06/21/19 06/21/19 05:50 05:50 WBC 4.1 RBC 4.67 Hgb 13.4 Hct 39.8 MCV 85.3 MCH 28.8 MCHC 33.7 RDW 14.3 Plt Count 308 MPV 7.7 Sodium 141 Potassium 4.1 Chloride 105 Carbon Dioxide 29 Anion Gap 6 L BUN 16.0 Creatinine 0.9 Est GFR (CKD-EPI)AfAm 104.24 Est GFR (CKD-EPI)NonAf 89.94 Random Glucose 85 Calcium 9.2 Total Bilirubin 0.5 AST 91 H ALT 105 H Alkaline Phosphatase 70 Total Protein 6.4 Albumin 3.3 L ASSESSMENT AND PLAN: Acute Pulmonary Emboli, provoked Left Popliteal DVT Pulmonary HTN/Cor Pulmonale COPD/Asthma Prostate Ca Can start NOAC No indication for catheter directed thrombectomy/thrombolysis DC planning Dr Hendrickson
== END 2019-06-21 14:24 | disposition home or self-care (01) | DRG 176 ==
LOC: JER 17:48 → JERBED 23:05 → J4W 06-15 14:35 → JICU 06-15 23:04
PROVIDERS: ADMIT Internal Medicine; ATTEND Internal Medicine
DX: I26.99 Other pulmonary embolism without acute cor pulmonale (principal); I10 Essential (primary) hypertension; J44.9 Chronic obstructive pulmonary disease, unspecified; Z85.46 Personal history of malignant neoplasm of prostate; I45.10 Unspecified right bundle-branch block; R07.89 Other chest pain; R00.1 Bradycardia, unspecified; I27.20 Pulmonary hypertension, unspecified; E66.9 Obesity, unspecified; Z68.31 Body mass index [BMI] 31.0-31.9, adult
CPT/HCPCS: 36415; 36600; 71045-TC-FY; 71275-TC; 80048; 80053; 80061; 81003; 82550; 82553; 82803; 83036; 83605; 83721; 83735; 83880; 84100; 84443; 84484; 85025; 85027; 85610; 85730; 86850; 86900; 86901; 87040; 93005; 93010; 93306-TC; 93970-TC; 99285-25; J1644; J7030

== ENCOUNTER 2019-09-01 10:08 | Emergency (ER) | payer BC ==
[2019-09-01 10:20] VITALS: BMI 32.0
--- NOTE | 2019-09-01 11:45 | PDOC ---
History of Present Illness - General Chief Complaint: Pain Stated Complaint: CHEST PAIN - History of Present Illness Initial Comments: The pt is a 64M w/ a history of HTN, prostate cancer s/p rads, PE/DVT (05/2019, Eliquis) who presents for evaluation of 6 days of left sided chest pain. The pain is 'tugging', constant, waxing/waning, and not exacerbated or alleviated by anything he can identify. He denies MARSH, vision changes, SOB, N/B/C/D, dysuria , hematuria, worsening of leg swelling, or changes in sensation. Pt reports being compliant with his Eliquis. 09/01/19 12:48 Past History - Past Medical History Allergies/Adverse Reactions: Allergies Allergy/AdvReac Type Severity Reaction Status Date / Time almond Allergy Verified 09/01/19 10:11 [place] nut Allergy Verified 09/01/19 10:11 No Known Drug Allergies Allergy Verified 09/01/19 10:11 oyster extract Allergy Verified 09/01/19 10:11 shellfish derived Allergy Verified 09/01/19 10:11 HAY FEVER Allergy Uncoded 09/01/19 10:11 Home Medications: Ambulatory Orders Budesonide/Formeterol Fumarate [SYMBICORT 160/4.5mcg -] 2 inh PO BID 01/18/19 Apixaban [Eliquis -] 5 mg PO BID #180 tablet 06/21/19 Lisinopril [Prinivil] 20 mg PO BID #60 tablet 06/21/19 Sennosides [Senna -] 2 tab PO HS PRN #20 tablet 06/21/19 Amlodipine Besylate/Benazepril [Amlodipine-Benazepril 5-20 mg] 1 each PO DAILY 09/01/19 Furosemide 20 mg PO DAILY 09/01/19 Potassium Chloride [Klor-Con M10] 10 meq PO DAILY 09/01/19 Asthma: Yes Cancer: Yes (prostate s/p sx, completed RT 03/2019) COPD: No HTN: Yes Other medical history: Bilat PEs 06/07 - Immunization History Immunization Up to Date: No - Psycho Social/Smoking Cessation Hx Smoking History: Never smoked Have you smoked in the past 12 months: No Hx Alcohol Use: No Drug/Substance Use Hx: No Review of Systems - Review of Systems Able to Perform ROS?: Yes Comments:: GENERAL/CONSTITUTIONAL: No fever or chills. No weakness HEAD, EYES, EARS, NOSE AND THROAT: No change in vision. No change in hearing. No sore throat CARDIOVASCULAR: No shortness of breath RESPIRATORY: Denies cough, hemoptysis GASTROINTESTINAL: No nausea, vomiting, diarrhea or constipation GENITOURINARY: No dysuria, frequency, or change in urination MUSCULOSKELETAL: No joint or muscle swelling or pain. No neck or back pain SKIN: No rash NEUROLOGIC: No headache, vertigo, loss of consciousness, or change in strength/ sensation ENDOCRINE: No increased thirst. No abnormal weight change HEMATOLOGIC/LYMPHATIC: +DVT/PE on eliquis ALLERGIC/IMMUNOLOGIC: No hives or skin allergy 09/01/19 11:44 Is the patient limited Moroccan proficient: No *Physical Exam - Vital Signs Last Vital Signs Temp Pulse Resp BP Pulse Ox 98.1 F 66 18 119/80 98 09/01/19 10:19 09/01/19 10:19 09/01/19 10:19 09/01/19 10:19 09/01/19 10:19 - Physical Exam GENERAL: Awake, alert, and oriented to person/place/time, in no acute distress HEAD: No signs of trauma, normocephalic, atraumatic EYES: PERRLA, EOMI, sclera anicteric, conjunctiva clear ENT: Hearing grossly normal, nares patent, oropharynx clear without exudates. Moist mucosa LUNGS: No distress, speaks in full sentences, clear to auscultation bilaterally HEART: Regular rate and rhythm, normal S1 and S2, no murmurs appreciated, peripheral pulses normal and equal bilaterally ABDOMEN: Soft, nontender, normoactive bowel sounds. No guarding, no rebound EXTREMITIES: Normal inspection, Normal range of motion, no edema or palpable cords NEUROLOGICAL: Cranial nerves II through XII grossly intact. Normal speech, no focal sensorimotor deficits SKIN: Warm, Dry 09/01/19 11:44 ED Treatment Course - LABORATORY CBC & Chemistry Diagram: 09/01/19 12:00 09/01/19 12:00 Medical Decision Making - Medical Decision Making The pt is a 64M w/ a history of HTN, prostate cancer s/p rads, PE/DVT (05/2019, Eliquis) who presents for evaluation of 6 days of left sided chest pain. ED Course Pt took eliquis today CMP, CBC, Coags, Trop I ECG CTA chest ECG w/ sinus rhythm; HR 61; QTc 386; no axis deviation; no TWI; no JEAN-PIERRE 09/01/19 13:09 No leukocytosis No anemia Lytes unremarkable Trop I neg 09/01/19 14:34 Pt pending CTA chest Pt feels improved at this time 09/01/19 16:18 Plan for D/C w/ PCP f/u Discharge instructions and return precautions given Patient in agreement and verbalized understanding Dispo: Home Discharge - Discharge Information Problems reviewed: Yes Clinical Impression/Diagnosis: Chest pain Qualifiers: Chest pain type: unspecified Qualified Code(s): R07.9 - Chest pain, unspecified Condition: Stable Disposition: HOME - Admission No - Follow up/Referral Referrals: Damir Abraham MD [Primary Care Provider] - - Patient Discharge Instructions Patient Printed Discharge Instructions: DI for Chest Pain Additional Instructions: You were seen in the Emergency Department for evaluation of chest pain. Your labs and imaging were unremarkable. Your pulmonary embolism seems to have resolved. Continue to take your medications as prescribed until your primary care provider instructs you to change. Review the handout provided at discharge. Follow up with your primary care provider within a week. Return to the Emergency Department if you develop fevers, chest pain, dizziness , vision change, trouble breathing, worsening symptoms, or any new/concerning symptoms. - Post Discharge Activity
[2019-09-01 13:46] LABS: BASO % 0.6 % (0-2.0); EOS % 3.9 % (0-4.5); HEMATOCRIT 41.4 % (35.4-49); HEMOGLOBIN 13.8 GM/dL (11.7-16.9); MCH 28.9 pg (25.7-33.7); MCHC 33.2 g/dl (32.0-35.9); MEAN PLT VOLUME 8.6 fl (7.5-11.1); NEUT % 68.5 % (42.8-82.8); PLATELET COUNT 242 K/MM3 (134-434); RBC 4.75 M/mm3 (4.00-5.60); RDW 16.5 % (11.9-15.9); WHITE BLOOD COUNT 3.4 K/mm3 (4.0-10.0)
[2019-09-01 14:20] LABS: INR 1.39 (0.83-1.09); PROTHROMBIN TIME (PATIENT) 16.4 SEC (9.7-13.0)
[2019-09-01 14:22] LABS: BILIRUBIN,TOTAL 0.6 mg/dL (0.2-1); BLOOD UREA NITROGEN 17.8 mg/dL (7-18); CALCIUM 9.4 mg/dL (8.5-10.1); POTASSIUM 4.2 mmol/L (3.5-5.1); TOT PROT 6.9 g/dl (6.4-8.2)
[2019-09-01 14:23] LABS: ACTIVATED PTT 39.9 SECONDS (25.2-36.5)
--- NOTE | 2019-09-01 16:33 | PDOC ---
Documentation entered by Celina Gruber SCRIBE, acting as scribe for Kasey Khan MD. Kasey Khan MD: This documentation has been prepared by the Yasmani hernandez Brenda, SCRIBE, under my direction and personally reviewed by me in its entirety. I confirm that the documentation accurately reflects all work, treatment, procedures, and medical decision making performed by me. Attending Attestation - Resident Resident Name: Rangel Miguel - ED Attending Attestation I have performed the following: I have examined & evaluated the patient, The case was reviewed & discussed with the resident, I agree w/resident's findings & plan, Exceptions are as noted - HPI HPI: 09/01/19 12:34 The patient is a 64 year old male with a significant past medical history of HTN , asthma/COPD, prostate CA (s/p surgery in December and radiation in March) and season allergies who presents to the ED for evaluation of chest discomfort that feels like someone is tugging on him. Patient has a history of clotting but notes being consistent with his eliquis. Patient also endorses constant burping. The patient denies shortness of breath, headache and dizziness. Denies pain or swelling in the legs. Denies fever, chills, nausea, vomiting, diarrhea and constipation. Denies dysuria, frequency, urgency and hematuria. Allergies: NKA Past surgical history: Prostate Social history: No reported hx of tobacco use, alcohol use or illicit drug use. PCP: Jarad - Physicial Exam PE: 09/01/19 13:29 GENERAL: Awake, alert, and fully oriented, in no acute distress HEAD: No signs of trauma EYES: PERRLA, EOMI, sclera anicteric, conjunctiva clear ENT: Auricles normal inspection, hearing grossly normal, nares patent, oropharynx clear without exudates. Moist mucosa NECK: Normal ROM, supple, no lymphadenopathy, JVD, or masses LUNGS: Breath sounds equal, clear to auscultation bilaterally. No wheezes, and no crackles HEART: Regular rate and rhythm, normal S1 and S2, no murmurs, rubs or gallops ABDOMEN: Soft, nontender, normoactive bowel sounds. No guarding, no rebound. No masses EXTREMITIES: Normal range of motion, no edema. No clubbing or cyanosis. No cords, erythema, or tenderness NEUROLOGICAL: Cranial nerves II through XII grossly intact. Normal speech, normal gait SKIN: Warm, Dry, normal turgor, no rashes or lesions noted. - Medical Decision Making 09/01/19 16:30 Pt presents to the ED complaining of chest pain. history of PE in may, on eliquis that he reports he is taking consistently. Differential includes muscular pain, ACS, PE. EKG shows no evidence of ischemia. Troponin is within normal limits. Will check CT chest, likely discharge home if negative. 09/01/19 16:31
[2019-09-01 19:06] VITALS: BP 137/83; PULSE 62; TEMP 97.4
--- NOTE | 2019-09-03 17:25 | EKG ---
Test Reason : Blood Pressure : / mmHG Vent. Rate : 061 BPM Atrial Rate : 061 BPM P-R Int : 162 ms QRS Dur : 108 ms QT Int : 384 ms P-R-T Axes : 039 009 050 degrees QTc Int : 386 ms POOR DATA QUALITY, INTERPRETATION MAY BE ADVERSELY AFFECTED NORMAL SINUS RHYTHM RSR' OR QR PATTERN IN V1 SUGGESTS RIGHT VENTRICULAR CONDUCTION DELAY NORMAL ECG WHEN COMPARED WITH ECG OF 21-JUN-2019 09:08, NO SIGNIFICANT CHANGE WAS FOUND BASELINE WANDER Confirmed by YASHIRA ABARCA MD ([id number]) on 09/03/2019 5:25:34 PM Referred By: Confirmed By:YASHIRA ABARCA MD
== END 2019-09-01 18:25 | disposition home or self-care (01) ==
LOC: JER 10:08
DX: R07.9 Chest pain, unspecified (principal); I10 Essential (primary) hypertension; J45.909 Unspecified asthma, uncomplicated; Z86.711 Personal history of pulmonary embolism; Z85.46 Personal history of malignant neoplasm of prostate; Z86.718 Personal history of other venous thrombosis and embolism; Z79.01 Long term (current) use of anticoagulants; Z91.013 Allergy to seafood; Z91.018 Allergy to other foods; Z92.3 Personal history of irradiation
CPT/HCPCS: 36415; 71275-TC; 80053; 84484; 85025; 85610; 85730; 93005; 93010; 99285-25; Q9967

== ENCOUNTER 2021-02-21 00:22 | Inpatient (IN) | payer BC ==
[2021-02-21 01:17] LABS: EOS % 3.2 % (0-4.5); HEMATOCRIT 36.7 % (35.4-49); HEMOGLOBIN 12.7 GM/dL (11.7-16.9); LYMPH % 15.6 % (8-40); MCH 28.9 pg (25.7-33.7); MCHC 34.5 g/dl (32.0-35.9); MEAN CELL VOLUME 83.8 fl (80-96); MEAN PLT VOLUME 8.3 fl (7.5-11.1); MONO % 17.5 % (3.8-10.2); NEUT % 62.7 % (42.8-82.8); PLATELET COUNT 212 10^3/uL (134-434); RBC 4.38 M/mm3 (4.00-5.60); RDW 15.8 % (11.9-15.9); WHITE BLOOD COUNT 4.9 K/mm3 (4.0-10.0)
[2021-02-21 01:24] LABS: INR 1.21 (0.83-1.09); PROTHROMBIN TIME (PATIENT) 14.6 SEC (9.7-13.0)
[2021-02-21 01:26] LABS: ACTIVATED PTT 34.4 SECONDS (25.2-36.5)
[2021-02-21 01:42] LABS: CHLORIDE 104 mmol/L (98-107); SODIUM 123 mmol/L (136-145)
[2021-02-21 01:44] LABS: BLOOD UREA NITROGEN 24.7 mg/dL (7-18); CO2 24 mmol/L (21-32); GLUCOSE,RANDOM 84 mg/dL (74-106); MAGNESIUM 2.2 mg/dL (1.8-2.4)
[2021-02-21 01:48] LABS: CREATININE 1.3 mg/dL (0.55-1.3)
[2021-02-21 01:49] LABS: CHOLESTEROL 176 mg/dL (50-200); TOT PROT 8.6 g/dl (6.4-8.2); TRIGLYCERIDES 155 mg/dL (0-150)
[2021-02-21 01:50] LABS: ALK PHOS 64 U/L (45-117); HDL CHOLESTEROL 45 mg/dL (40-60); LDL CHOLESTEROL (ONLY SJRH) 132 mg/dL (5-100)
[2021-02-21] MEDS ORDERED: SODIUM CHLORIDE 0.9% 1000 ML INFUS.BAG IV ONE (01:53)
[2021-02-21 02:13] LABS: ANION GAP -6 MMOL/L (8-16)
[2021-02-21 03:02] LABS: URINE APPEARANCE CLEAR; URINE BILIRUBIN NEGATIVE (NEGATIVE); URINE COLOR YELLOW; URINE GLUCOSE (UA) NEGATIVE (NEGATIVE); URINE KETONE NEGATIVE (NEGATIVE); URINE LEUK ESTERASE NEGATIVE (NEGATIVE); URINE NITRITE NEGATIVE (NEGATIVE); URINE PROTEIN NEGATIVE (NEGATIVE); URINE UROBILINOGEN 0.2 mg/dL (0.2-1.0)
[2021-02-21 03:20] LABS: CALCIUM 8.7 mg/dL (8.5-10.1)
[2021-02-21 03:21] LABS: BLOOD UREA NITROGEN 24.1 mg/dL (7-18)
[2021-02-21 03:24] LABS: CREATININE 1.1 mg/dL (0.55-1.3)
[2021-02-21 06:47] LABS: BASO % 0.9 % (0-2.0); EOS % 3.4 % (0-4.5); HEMATOCRIT 35.9 % (35.4-49); HEMOGLOBIN 12.1 GM/dL (11.7-16.9); LYMPH % 15.3 % (8-40); MCH 28.9 pg (25.7-33.7); MCHC 33.6 g/dl (32.0-35.9); MEAN CELL VOLUME 86.2 fl (80-96); MEAN PLT VOLUME 8.4 fl (7.5-11.1); MONO % 16.2 % (3.8-10.2); NEUT % 64.2 % (42.8-82.8); PLATELET COUNT 191 10^3/uL (134-434); RBC 4.17 M/mm3 (4.00-5.60); RDW 14.7 % (11.9-15.9); WHITE BLOOD COUNT 3.7 K/mm3 (4.0-10.0)
[2021-02-21 06:56] LABS: CHLORIDE 109 mmol/L (98-107); SODIUM 142 mmol/L (136-145)
[2021-02-21 07:00] LABS: CALCIUM 8.1 mg/dL (8.5-10.1)
[2021-02-21 07:01] LABS: ALBUMIN 3.2 g/dl (3.4-5.0); ANION GAP 6 MMOL/L (8-16); BLOOD UREA NITROGEN 21.9 mg/dL (7-18); CO2 27 mmol/L (21-32); GLUCOSE,RANDOM 87 mg/dL (74-106)
[2021-02-21 07:04] LABS: SGOT/AST 13 U/L (15-37); SGPT/ALT 20 U/L (13-61)
[2021-02-21 07:05] LABS: BILIRUBIN,TOTAL 0.5 mg/dL (0.2-1)
[2021-02-21 07:07] LABS: ALK PHOS 59 U/L (45-117)
[2021-02-21 07:15] LABS: TOT PROT 5.9 g/dl (6.4-8.2)
[2021-02-21] MEDS: APIXABAN 5 MG TABLET PO SCH ×2 (12:35→23:27)
[2021-02-21] MEDS: PANTOPRAZOLE 20 MG TABLET PO SCH ×2 (12:35→23:27)
[2021-02-21] MEDS: POTASSIUM CHLORIDE TABS 10 MEQ TABLET.ER (FP) PO SCH (12:41)
[2021-02-21] MEDS: amLODIPine BESYLATE 10 MG TABLET (FP) PO SCH (12:41)
[2021-02-21] MEDS: LISINOPRIL 20 MG TABLET PO SCH (12:41)
[2021-02-21] MEDS: FUROSEMIDE 20 MG TABLET (FP) PO SCH (12:41)
[2021-02-21 14:20] VITALS: BMI 33.2
[2021-02-21] MEDS: ASPIRIN 81 MG CHEWABLE TABLETS PO SCH (23:27)
[2021-02-21] MEDS: MONTELUKAST NA 10 MG TABLET PO SCH (23:27)
[2021-02-21] MEDS: ATORVASTATIN CA 40 MG TABLET (FP) PO SCH (23:27)
[2021-02-22] MEDS: LISINOPRIL 20 MG TABLET PO SCH (09:47)
[2021-02-22] MEDS: PANTOPRAZOLE 20 MG TABLET PO SCH ×2 (09:47→21:01)
[2021-02-22] MEDS: ASPIRIN 81 MG CHEWABLE TABLETS PO SCH (09:47)
[2021-02-22] MEDS: APIXABAN 5 MG TABLET PO SCH ×2 (09:47→21:01)
[2021-02-22] MEDS: POTASSIUM CHLORIDE TABS 10 MEQ TABLET.ER (FP) PO SCH (09:47)
[2021-02-22] MEDS: amLODIPine BESYLATE 10 MG TABLET (FP) PO SCH (09:56)
[2021-02-22] MEDS: FUROSEMIDE 20 MG TABLET (FP) PO SCH (09:56)
[2021-02-22] MEDS: POLYETHYLENE GLYCOL (HEALTHYLAX) 3350 17 GM PACKET PO PRN (21:01)
[2021-02-22] MEDS: MONTELUKAST NA 10 MG TABLET PO SCH (21:01)
[2021-02-22] MEDS: ATORVASTATIN CA 40 MG TABLET (FP) PO SCH (21:01)
[2021-02-23] MEDS: LISINOPRIL 20 MG TABLET PO SCH (09:17)
[2021-02-23] MEDS: amLODIPine BESYLATE 10 MG TABLET (FP) PO SCH (09:17)
[2021-02-23] MEDS: FUROSEMIDE 20 MG TABLET (FP) PO SCH (09:17)
[2021-02-23] MEDS: ASPIRIN 81 MG CHEWABLE TABLETS PO SCH (09:17)
[2021-02-23] MEDS: POTASSIUM CHLORIDE TABS 10 MEQ TABLET.ER (FP) PO SCH (09:17)
[2021-02-23] MEDS: APIXABAN 5 MG TABLET PO SCH ×2 (09:17→21:31)
[2021-02-23] MEDS: PANTOPRAZOLE 20 MG TABLET PO SCH ×2 (09:17→21:31)
[2021-02-23] MEDS: DOCUSATE SODIUM 100 MG CAPSULE (FP) PO SCH (09:17)
[2021-02-23 09:36] LABS: BASO % 0.4 % (0-2.0); EOS % 3.7 % (0-4.5); HEMATOCRIT 39.4 % (35.4-49); HEMOGLOBIN 13.3 GM/dL (11.7-16.9); LYMPH % 15.4 % (8-40); MCH 29.1 pg (25.7-33.7); MCHC 33.9 g/dl (32.0-35.9); MEAN CELL VOLUME 85.8 fl (80-96); MEAN PLT VOLUME 8.8 fl (7.5-11.1); MONO % 12.5 % (3.8-10.2); PLATELET COUNT 216 10^3/uL (134-434); RBC 4.59 M/mm3 (4.00-5.60); WHITE BLOOD COUNT 3.7 K/mm3 (4.0-10.0)
[2021-02-23 10:11] LABS: CALCIUM 8.8 mg/dL (8.5-10.1)
[2021-02-23 10:12] LABS: BLOOD UREA NITROGEN 18.3 mg/dL (7-18)
[2021-02-23] MEDS: POTASSIUM CHLORIDE 10 MEQ in SODIUM CHLORIDE 0.45% 1,000 ML IVPB SCH (12:10)
[2021-02-23] MEDS ORDERED: PT OWN MED DRAWER 7, Y5N ONE (13:43)
[2021-02-23] MEDS: ATORVASTATIN CA 40 MG TABLET (FP) PO SCH (21:31)
[2021-02-23] MEDS: MONTELUKAST NA 10 MG TABLET PO SCH (21:31)
[2021-02-24] MEDS: POTASSIUM CHLORIDE 10 MEQ in SODIUM CHLORIDE 0.45% 1,000 ML IVPB SCH ×3 (01:31→15:08)
[2021-02-24] MEDS ORDERED: PT OWN MED DRAWER 7, Y5N ONE (10:21)
[2021-02-24] MEDS: POLYETHYLENE GLYCOL (HEALTHYLAX) 3350 17 GM PACKET PO PRN (10:32)
[2021-02-24] MEDS: PANTOPRAZOLE 20 MG TABLET PO SCH ×2 (10:32→21:21)
[2021-02-24] MEDS: DOCUSATE SODIUM 100 MG CAPSULE (FP) PO SCH (10:32)
[2021-02-24] MEDS: ASPIRIN 81 MG CHEWABLE TABLETS PO SCH (10:32)
[2021-02-24] MEDS: FUROSEMIDE 20 MG TABLET (FP) PO SCH (10:32)
[2021-02-24] MEDS: POTASSIUM CHLORIDE TABS 10 MEQ TABLET.ER (FP) PO SCH (10:32)
[2021-02-24] MEDS: LISINOPRIL 20 MG TABLET PO SCH (10:32)
[2021-02-24] MEDS: APIXABAN 5 MG TABLET PO SCH ×2 (10:32→21:20)
[2021-02-24] MEDS: amLODIPine BESYLATE 10 MG TABLET (FP) PO SCH (10:32)
[2021-02-24] MEDS: MONTELUKAST NA 10 MG TABLET PO SCH (21:20)
[2021-02-24] MEDS: ATORVASTATIN CA 40 MG TABLET (FP) PO SCH (21:20)
[2021-02-25] MEDS: ASPIRIN 81 MG CHEWABLE TABLETS PO SCH (09:51)
[2021-02-25] MEDS: FUROSEMIDE 20 MG TABLET (FP) PO SCH (09:52)
[2021-02-25] MEDS: APIXABAN 5 MG TABLET PO SCH (09:52)
[2021-02-25] MEDS: PANTOPRAZOLE 20 MG TABLET PO SCH (09:52)
[2021-02-25] MEDS: LISINOPRIL 20 MG TABLET PO SCH (09:52)
[2021-02-25] MEDS: amLODIPine BESYLATE 10 MG TABLET (FP) PO SCH (09:52)
[2021-02-25] MEDS: POTASSIUM CHLORIDE TABS 10 MEQ TABLET.ER (FP) PO SCH (09:52)
[2021-02-25] MEDS: DOCUSATE SODIUM 100 MG CAPSULE (FP) PO SCH (09:52)
[2021-02-25 15:10] VITALS: BP 135/67; PULSE 65; TEMP 98.4
== END 2021-02-25 18:39 | disposition home or self-care (01) | DRG 69 ==
LOC: JER 00:22 → JERBED 03:09 → J8W 11:43
PROVIDERS: ADMIT Internal Medicine; ATTEND Internal Medicine
DX: G45.9 Transient cerebral ischemic attack, unspecified (principal); J44.9 Chronic obstructive pulmonary disease, unspecified; I10 Essential (primary) hypertension; E66.9 Obesity, unspecified; Z68.33 Body mass index [BMI] 33.0-33.9, adult; Z86.711 Personal history of pulmonary embolism; Z85.46 Personal history of malignant neoplasm of prostate; Z86.718 Personal history of other venous thrombosis and embolism
CPT/HCPCS: 36415; 70450-TC; 70551-TC; 71045-TC-FY; 71260-TC; 80048; 80053; 80061; 81003; 82550; 83735; 84443; 84484; 85025; 85610; 85651; 85730; 86850; 86900; 86901; 93005; 93010; 93306-TC; 93880-TC; 93970-TC; 97116-GP; 97161-GP; 99285-25; C9803; Q9967; U0003; U0005